=== PATIENT | female | born 1935 | race Caucasian/White ===

== ENCOUNTER 2016-08-31 04:51 | Inpatient (IN) | payer MEDICARE, BC ==
[~2016-08-31] VITALS: Ht 172.7 cm; Wt 60.0 kg
[2016-08-31] VITALS (12 sets, daily range): BP systolic 115–161; BP diastolic 58–97; PULSE 73–87; RESP 14–25; TEMP 97.6–101.6; O2SAT 94–99
[~2016-08-31 04:51] MED LIST: B-12500T3 PO; BONI3INJ IM; CALC500 PO; CIPR500T4 PO; FOLI200T OR; IRON28TA2 PO; LACT PO; LEVO125T3 PO; METH-60 IM; METH4TAB6 PO; METR500I3 PO; MULT-65 PO; VITA400C58 PO
[2016-08-31] MEDS ORDERED: MULT1TAB84 PO (05:00)
[2016-08-31] MEDS ORDERED: ZOLE5P IV (05:00)
[2016-08-31] MEDS ORDERED: ABAT1INJ2 SQ (05:00)
[2016-08-31] MEDS ORDERED: LEVO100T5 PO (05:00)
[2016-08-31] MEDS ORDERED: FERR1TAB58 PO (05:00)
[2016-08-31] MEDS ORDERED: METH4TAB6 PO (05:00)
[2016-08-31] MEDS ORDERED: HYDR200T3 PO (05:00)
--- NOTE | 2016-08-31 05:14 | PD ---
HPI Chief Complaint: GI Complaint Time Seen by Provider: 05:07 Travel History International Travel<30 days: No Contact w/Intl Traveler<30days: No Traveled to known affect area: No History of Present Illness HPI The patient is a 80 year old female who presents to the [facility] emergency department with a history of not feeling well when she tried to go to bed this evening. She reports that she's had tremulousness and then began to have nausea and vomiting 6, diarrhea too many times to count. She reports that the stool is brown in color. She denies having any blood in her stool or mucus in her stool. She denies having any focal abdominal pain, except just before she needs to vomit. She denies being on any recent antibiotic over the last 3 months, any sick contacts, or foreign travel in the last 6 months. She denies having any chest pain or shortness of breath. The patient denies having any dysuria or urinary frequency, however she does report having some urinary urgency. The patient was brought in by ambulance services with a blood sugar reported prior to her arrival to be 124. The patient denies any known fever, cough, congestion, neck pain, or neurologic symptoms. [facility] Past Medical History Narrative Medical The patient's past medical history is significant for rheumatoid arthritis, hypothyroid disorder, history of kidney stones status post lithotripsy in March 2016. Anemia: Yes Arthritis: Yes Asthma: No Autoimmune Disease: No Heart Rhythm Problems: No Cancer: No Cardiovascular Problems: No High Cholesterol: No Chemotherapy: No Chest Pain: No Congestive Heart Failure: No COPD: Yes Cerebrovascular Accident: No Diabetes: No Diminished Hearing: No Endocrine: No GERD: No Genitourinary: No Hiatal Hernia: No Immune Disorder: No Kidney Stones: No Musculoskeletal: Yes Neurologic: No Psychiatric: No Reproductive: No Respiratory: Yes Migraines: No Radiation Therapy: No Renal Failure: No Seizures: No Sickle Cell Disease: No Sleep Apnea: No Thyroid Disease: Yes Ulcer: No Tetanus Vaccination: < 5 Years Influenza Vaccination: Yes Menopausal: Yes Past Surgical History Narrative Surgical The patient's past surgical history is significant for an appendectomy, tonsillectomy, eye surgery, and lithotripsy. Abdominal Surgery: No AICD: No Appendectomy: Yes Arteriovenous Shunt: No Cardiac Surgery: No Ear Surgery: No Endocrine Surgery: No Eye Surgery: No Genitourinary Surgery: No Gynecologic Surgery: No Joint Replacement: No Oral Surgery: No Pacemaker: No Thoracic Surgery: Yes Tonsillectomy: Yes Other Surgery: Yes (LEFT BREAST LUMPECTOMY) Social History Alcohol Use: No Tobacco Use: No Substance Use: No Allergies-Medications (Allergen,Severity, Reaction): Coded Allergies: Vitamin K (Verified Adverse Reaction, Intermediate, UPSET STOMACH, 08/31/16 ) Reported Meds & Prescriptions Reported Meds & Active Scripts Active Reported Reclast Inj (Zoledronic Acid) 5 Mg/100 Ml Inj 5 Mg IV Q365D Orencia Clickjet Inj (Abatacept) 125 Mg/Ml Pen 125 Mg SQ Q7D Hydroxychloroquine (Hydroxychloroquine Sulfate) 200 Mg Tab 200 Mg PO BID Takw with food Methylprednisolone 4 Mg Tab 4 Mg PO DAILY Levothyroxine (Levothyroxine Sodium) 100 Mcg Tab 100 Mcg PO DAILY Iron (Ferrous Sulfate) 50 Mg Tab 65 Mg PO DAILY Multivitamin Adults (Multiple Vitamins W/ Minerals) 1 Tab 1 Tab PO DAILY Review of Systems Except as stated in HPI: all other systems reviewed are Neg General / Constitutional: No: Fever Eyes: No: Visual changes HENT: No: Headaches Cardiovascular: No: Chest Pain or Discomfort Respiratory: No: Shortness of Breath Gastrointestinal: Positive: Nausea, Vomiting, Diarrhea, Abdominal Pain, Changes in Bowel Habits, No: Indigestion, Loss of Appetite Genitourinary: Positive: Urgency, No: Frequency, Dysuria Musculoskeletal: No: Pain Skin: No Rash Neurologic: Positive: Weakness (generalized weakness), No: Focal Abnormalities , Change in Mentation, Slurred Speech, Sensory Disturbance Psychiatric: No: Depression Endocrine: No: Polydipsia Hematologic/Lymphatic: No: Easy Bruising Physical Exam Narrative General: The patient is a well-developed well-nourished female in no acute distress. Head and Neck exam: Head is normocephalic atraumatic. Eyes: EOMI, pupils are equal round and reactive to light. Nose: Midline septum with pink mucous membranes Mouth: Dentition unremarkable. Moist mucus membranes. Posterior oropharynx is not erythematous. No tonsillar hypertrophy. Uvula midline. Airway patent. Neck: No palpable lymphadenopathy. No nuchal rigidity. No thyromegaly. Cardiovascular: Regular rate and rhythm without murmurs, gallops, or rubs. Lungs: Clear to auscultation bilaterally. No wheezes, rhonchi, or rales. The patient' s O2 saturation on room air is 90-91% Abdomen: Soft, without tenderness to palpation in all 4 quadrants of the abdomen. No guarding, rebound, or rigidity. Normal bowel sounds are audible. Extremities: No clubbing, cyanosis, or edema. 2+ pulses in all 4 extremities. Back: No costovertebral angle tenderness to palpation. Neurologic Exam: Cranial nerves 2-12 were intact on exam. Strength is 5/5 in all 4 extremities. No sensory deficits noted. Skin Exam: No rash noted. Intact skin that is warm and dry. Data Data Last Documented VS Vital Signs Date Time Temp Pulse Resp B/P Pulse Ox O2 Delivery O2 Flow Rate FiO2 08/31/16 10:04 98.5 08/31/16 09:00 84 16 127/97 97 Nasal Cannula 2 Orders Electrocardiogram (08/31/16 05:07) Complete Blood Count With Diff (08/31/16 05:07) Comprehensive Metabolic Panel (08/31/16 05:07) Creatine Kinase (Cpk) (08/31/16 05:07) Ckmb (Isoenzyme) Profile (08/31/16 05:07) Troponin I (08/31/16 05:07) B-Type Natriuretic Peptide (08/31/16 05:07) Blood Culture (08/31/16 05:07) C-Reactive Protein (Crp) (08/31/16 05:07) Lipase (08/31/16 05:07) Urinalysis - C+S If Indicated (08/31/16 05:07) Cath For Specimen (08/31/16 05:07) Thyroid Stimulating Hormone (08/31/16 05:07) Chest, Single Ap (08/31/16 05:07) Iv Access Insert/Monitor (08/31/16 05:07) Ecg Monitoring (08/31/16 05:07) Oximetry (08/31/16 05:07) Lactic Acid Sepsis Protocol (08/31/16 05:07) Sodium Chlor 0.9% 1000 Ml Inj (Ns 1000 M (08/31/16 05:15) Ondansetron Inj (Zofran Inj) (08/31/16 05:15) CKMB (08/31/16 05:20) CKMB% (08/31/16 05:20) Ct Abd/Pel W/O Iv Contrast (08/31/16 06:28) Sodium Chlorid 0.9% 500 Ml Inj (Ns 500 M (08/31/16 07:00) Oral Rehydration (08/31/16 06:47) Act Partial Throm Time (Ptt) (08/31/16 07:49) Prothrombin Time / Inr (Pt) (08/31/16 07:49) Blood Culture (08/31/16 07:49) Magnesium (Mg) (08/31/16 07:49) Phosphorus (Po4) (08/31/16 07:49) Lactic Acid (08/31/16 07:49) Sodium Chlor 0.9% 1000 Ml Inj (Ns 1000 M (08/31/16 08:00) Ceftriaxone Inj (Rocephin Inj) (08/31/16 08:00) Metronidazole 500 Mg Inj (Flagyl 500 Mg (08/31/16 08:00) Acetaminophen (Tylenol) (08/31/16 08:00) Ct Abd/Pel W Iv Contrast(Rout) (08/31/16 ) Oral Contrast - Adult (08/31/16 08:08) Diatrizoate Liq ( Gastroview Liq) (08/31/16 08:26) Iohexol 350 Inj (Omnipaque 350 Inj) (08/31/16 09:34) Admit Order (Ed Use Only) (08/31/16 ) Labs Laboratory Tests Test 08/31/16 08/31/16 08/31/16 08/31/16 05:20 05:25 05:30 08:24 White Blood Count 8.4 TH/MM3 Red Blood Count 4.29 MIL/MM3 Hemoglobin 13.0 GM/DL Hematocrit 38.0 % Mean Corpuscular Volume 88.6 FL Mean Corpuscular Hemoglobin 30.4 PG Mean Corpuscular Hemoglobin 34.3 % Concent Red Cell Distribution Width 13.7 % Platelet Count 246 TH/MM3 Mean Platelet Volume 7.8 FL Neutrophils (%) (Auto) 83.7 % Lymphocytes (%) (Auto) 8.8 % Monocytes (%) (Auto) 7.1 % Eosinophils (%) (Auto) 0.1 % Basophils (%) (Auto) 0.3 % Neutrophils # (Auto) 7.0 TH/MM3 Lymphocytes # (Auto) 0.7 TH/MM3 Monocytes # (Auto) 0.6 TH/MM3 Eosinophils # (Auto) 0.0 TH/MM3 Basophils # (Auto) 0.0 TH/MM3 CBC Comment DIFF FINAL Differential Comment Sodium Level 134 MEQ/L Potassium Level 4.3 MEQ/L Chloride Level 102 MEQ/L Carbon Dioxide Level 24.9 MEQ/L Anion Gap 7 MEQ/L Blood Urea Nitrogen 17 MG/DL Creatinine 0.85 MG/DL Estimat Glomerular Filtration 65 ML/MIN Rate Random Glucose 127 MG/DL Calcium Level 8.6 MG/DL Total Bilirubin 0.5 MG/DL Aspartate Amino Transf 76 U/L (AST/SGOT) Alanine Aminotransferase 73 U/L (ALT/SGPT) Alkaline Phosphatase 88 U/L Total Creatine Kinase 116 U/L Creatine Kinase MB 0.6 NG/ML Troponin I LESS THAN 0.02 NG/ML C-Reactive Protein 2.98 MG/DL 2.80 MG/DL B-Type Natriuretic Peptide 56 PG/ML Total Protein 6.8 GM/DL Albumin 2.9 GM/DL Lipase 121 U/L Thyroid Stimulating Hormone 1.600 uIU/ML 3rd Gen Urine Color YELLOW Urine Turbidity CLEAR Urine pH 7.[address] 1.014 Urine Protein NEG mg/dL Urine Glucose (UA) NEG mg/dL Urine Ketones NEG mg/dL Urine Occult Blood NEG Urine Nitrite NEG Urine Bilirubin NEG Urine Urobilinogen LESS THAN 2.0 MG/DL Urine Leukocyte Esterase NEG Urine RBC 11 /hpf Urine WBC 3 /hpf Urine Hyaline Casts 1 /lpf Urine Mucus FEW /lpf Microscopic Urinalysis Comment CULT NOT INDICATED Lactic Acid Level 1.8 mmol/L 0.9 mmol/L Prothrombin Time 11.3 SEC Prothromb Time International 1.0 RATIO Ratio Activated Partial 24.9 SEC Thromboplast Time Phosphorus Level 1.8 MG/DL Magnesium Level 1.7 MG/DL MDM Medical Decision Making Medical Screen Exam Complete: Yes Emergency Medical Condition: Yes Medical Record Reviewed: Yes Interpretation(s) Last Impressions Abdomen/Pelvis CT 08/31/16627 Signed Impressions: Service Date/Time: Wednesday, August 31, 2016 06:40 - CONCLUSION: 1. Florid diverticulosis with chronic diverticular disease but I don't see high grade acute inflammatory changes. This study without intravenous or oral contrast suggests extraluminal fluid and air collections within the pelvic cavity as above. Recommend repeating CT of the abdomen and pelvis with intravenous and oral contrast for further evaluation. 2. There is a elongated stone of the left ureteropelvic junction causing mild obstructive uropathy. 3. Prominent extrarenal pelvis on the right without evidence of acute right-sided obstructive uropathy. Haider England MD Chest X-Ray 08/31/16 0507 Signed Impressions: Service Date/Time: Wednesday, August 31, 2016 05:32 - CONCLUSION: Chronic interstitial lung disease and mild cardiomegaly similar to before. No acute cardiopulmonary disease demonstrated. Haider England MD Abdomen/Pelvis CT 08/31/16 0000 Signed Impressions: Service Date/Time: Wednesday, August 31, 2016 09:27 - CONCLUSION: 2.7 x 2.3 cm soft tissue collection directly superior to the sigmoid colon I suspect is a decompressed diverticular abscess. There is no drainable fluid on today's examination but it is new since the August 2015 examination. Underlying inflammation around the sigmoid colon suggests ongoing diverticulitis. Please see above. Cristian Leach MD Differential Diagnosis Sepsis, versus urinary tract infection, versus pneumonia, versus viral versus bacterial gastroenteritis, versus acute coronary syndrome Narrative Course During the course of the patients emergency department visit, the patients history, examination, and differential diagnosis were reviewed with the patient. The patient had IV access obtained and blood work sent for analysis. The patient was placed on a classroom monitor with oximetry and blood pressure monitoring. The patient was started on 2 L nasal cannula O2. The patient was provided normal saline 1 L IV fluid bolus, Zofran 4 mg IV for nausea. The patients laboratory studies were reviewed and remarkable for a CBC with a normal white count, however neutrophil predominance, CMP is unremarkable. Cardiac enzymes are within normal limits. Urinalysis showed evidence of microscopic hematuria. CT scan of the abdomen and pelvis without contrast has been ordered to evaluate further for possible stone versus mass. CT scan was pending result at the conclusion of my shift. The patient's case was checked out to the oncoming emergency physician to disposition based on the conclusion of her workup. Prior to my shift ending I did discuss this further with the patient and the patient's . The patient will attempt oral rehydration as she reports feeling improved after Zofran administration and IV fluids. Diagnosis Primary Impression: Nausea vomiting and diarrhea Max,Reny D. MD Aug 31, 2016 05:14
[2016-08-31] MEDS ORDERED: ONDANSETRON HCL 4 MG/2 ML VIAL IV ONE (05:15)
[2016-08-31] MEDS ORDERED: SODIUM CHLOR 0.9% 1000 ML INJ 1,000 ML IV ONE ×2 (05:15→08:00)
[2016-08-31 05:37] LABS: BASOPHIL % 0.3 % (0.0-2.0); EOSINOPHIL % 0.1 % (0.0-4.0); HEMO FLAGS DIFF FINAL; LYMPH % 8.8 % (9.0-44.0); LYMPHOCYTE # 0.7 TH/MM3 (1.0-4.8); MEAN CELL VOLUME 88.6 FL (80.0-100.0); MEAN CORPUSCULAR HEMOGLOBIN 30.4 PG (27.0-34.0); MEAN CORPUSCULAR HGB CONC 34.3 % (32.0-36.0); MONO % 7.1 % (0.0-8.0); NEUT % 83.7 % (16.0-70.0); PLATELET COUNT 246 TH/MM3 (150-450); RED BLOOD COUNT 4.29 MIL/MM3 (4.00-5.30); RED CELL DISTRIBUTION WIDTH 13.7 % (11.6-17.2); WHITE BLOOD COUNT 8.4 TH/MM3 (4.0-11.0)
[2016-08-31 05:38] LABS: BLOOD, URINE NEG (NEG); GLUCOSE,URINE NEG (NEG); HYALINE CAST, URINE 1 /lpf (RARE); KETONE, URINE NEG (NEG); MUCUS URINE FEW /lpf (OCC); NITRITE,URINE NEG (NEG); URINE COLOR YELLOW (YELLW/STRAW)
[2016-08-31 05:39] LABS: COMMENT (UR) CULT NOT INDICATED; CULTURE IF INDICATED CULT NOT INDICATED
--- NOTE | 2016-08-31 06:00 | RADRPT ---
EXAM DATE/TIME: 08/31/2016 05:32 [facility] COMPARISON: No previous studies available for comparison. INDICATIONS : Cough. MEDICAL HISTORY : Chronic obstructive pulmonary disease. Emphysema. Osteoarthritis. Thyroid disease, Anemia SURGICAL HISTORY : Tonsillectomy. Appendectomy. Left breast lumpectomy ENCOUNTER: Initial ACUITY: 1 day PAIN SCORE: 0/10 LOCATION: Bilateral chest FINDINGS: Chronic interstitial opacities laterally in the right mid lung and laterally of both bases again note d. No acute infiltrates seen. No pleural effusion or pneumothorax. Mild cardiomegaly is stable. CONCLUSION: Chronic interstitial lung disease and mild cardiomegaly similar to before. No acute cardiopulmonary d isease demonstrated. Haider England MD on August 31, 2016 at 5:57 Board Certified Radiologist. This report was verified electronically.
[2016-08-31 06:08] LABS: ALT (GPT) 73 U/L (10-53); ANION GAP 7 MEQ/L (5-15); AST (GOT) 76 U/L (15-37); BICARBONATE 24.9 MEQ/L (21.0-32.0); BLOOD UREA NITROGEN 17 MG/DL (7-18); CHLORIDE 102 MEQ/L (98-107); GLOMERULAR FILTRATION RATE 65 ML/MIN (>89); POTASSIUM 4.3 MEQ/L (3.5-5.1); SODIUM (NA) 134 MEQ/L (136-145)
[2016-08-31 06:22] LABS: ALKALINE PHOSPHATASE 88 U/L (45-117); CREATINE KINASE 116 U/L (26-192); TOTAL BILIRUBIN ADULT 0.5 MG/DL (0.2-1.0)
[2016-08-31 06:36] LABS: CKMB 0.6 NG/ML (0.5-3.6)
[2016-08-31] MEDS ORDERED: SODIUM CHLORID 0.9% 500 ML INJ 500 ML IV ONE (07:00)
--- NOTE | 2016-08-31 07:05 | RADRPT ---
EXAM DATE/TIME: 08/31/2016 06:40 [facility] COMPARISON: No previous studies available for comparison. INDICATIONS : Nausea, vomiting, diarrhea, and hematuria. ORAL CONTRAST: No oral contrast ingested. RADIATION DOSE: 9.78 CTDIvol (mGy) MEDICAL HISTORY : Chronic obstructive pulmonary disease. Emphysema. IBS, thyroid disease SURGICAL HISTORY : Appendectomy. left lumpectomy ENCOUNTER: Initial ACUITY: 1 day PAIN SCALE: 10/10 LOCATION: abdomen TECHNIQUE: Volumetric scanning of the abdomen and pelvis was performed. Using automated exposure control and ad justment of the mA and/or kV according to patient size, radiation dose was kept as low as reasonably achievable to obtain optimal diagnostic quality images. FINDINGS: Study was done without intravenous or oral contrast. There is florid diverticulosis and chronic diver ticular disease of the sigmoid colon. I believe there are extraluminal fluid and air collections, one in the central pelvic cavity measuring 3 cm in size, series 2 image 97 and the other in the right ce ntral anterior pelvic cavity measuring about 5.5 cm, series 2 image 106. Loss of fat planes between t he sigmoid colon and uterus but I don't see direct involvement of the urinary bladder. Urinary bladde r is decompressed with a Miles catheter. 3 x 6.5 x 6.5 mm calculus seen at the left ureteropelvic junction causing mild hydronephrosis. There is also mild right hydronephrosis which I believe is chronic loss of compliance of the collecting sys tems rather than acute obstruction. I don't see a stone on the right. The right and left ureters are normal. Noncontrast appearance of the spleen, pancreas, adrenal glands and visualized liver are within normal limits. At least trace atelectasis seen of the visualized lung bases. No acute bony abnormality demo nstrated. CONCLUSION: 1. Florid diverticulosis with chronic diverticular disease but I don't see high grade acute inflammat ory changes. This study without intravenous or oral contrast suggests extraluminal fluid and air gabrielle ections within the pelvic cavity as above. Recommend repeating CT of the abdomen and pelvis with intr avenous and oral contrast for further evaluation. 2. There is a elongated stone of the left ureteropelvic junction causing mild obstructive uropathy. 3. Prominent extrarenal pelvis on the right without evidence of acute right-sided obstructive uropath y. Haider England MD on August 31, 2016 at 6:53 Board Certified Radiologist. This report was verified electronically.
--- NOTE | 2016-08-31 07:56 | PD ---
Data Data Last Documented VS Vital Signs Date Time Temp Pulse Resp B/P Pulse Ox O2 Delivery O2 Flow Rate FiO2 08/31/16 10:04 98.5 08/31/16 09:00 84 16 127/97 97 Nasal Cannula 2 Orders Electrocardiogram (08/31/16 05:07) Complete Blood Count With Diff (08/31/16 05:07) Comprehensive Metabolic Panel (08/31/16 05:07) Creatine Kinase (Cpk) (08/31/16 05:07) Ckmb (Isoenzyme) Profile (08/31/16 05:07) Troponin I (08/31/16 05:07) B-Type Natriuretic Peptide (08/31/16 05:07) Blood Culture (08/31/16 05:07) C-Reactive Protein (Crp) (08/31/16 05:07) Lipase (08/31/16 05:07) Urinalysis - C+S If Indicated (08/31/16 05:07) Cath For Specimen (08/31/16 05:07) Thyroid Stimulating Hormone (08/31/16 05:07) Chest, Single Ap (08/31/16 05:07) Iv Access Insert/Monitor (08/31/16 05:07) Ecg Monitoring (08/31/16 05:07) Oximetry (08/31/16 05:07) Lactic Acid Sepsis Protocol (08/31/16 05:07) Sodium Chlor 0.9% 1000 Ml Inj (Ns 1000 M (08/31/16 05:15) Ondansetron Inj (Zofran Inj) (08/31/16 05:15) CKMB (08/31/16 05:20) CKMB% (08/31/16 05:20) Ct Abd/Pel W/O Iv Contrast (08/31/16 06:28) Sodium Chlorid 0.9% 500 Ml Inj (Ns 500 M (08/31/16 07:00) Oral Rehydration (08/31/16 06:47) Act Partial Throm Time (Ptt) (08/31/16 07:49) Prothrombin Time / Inr (Pt) (08/31/16 07:49) Blood Culture (08/31/16 07:49) Magnesium (Mg) (08/31/16 07:49) Phosphorus (Po4) (08/31/16 07:49) Lactic Acid (08/31/16 07:49) Sodium Chlor 0.9% 1000 Ml Inj (Ns 1000 M (08/31/16 08:00) Ceftriaxone Inj (Rocephin Inj) (08/31/16 08:00) Metronidazole 500 Mg Inj (Flagyl 500 Mg (08/31/16 08:00) Acetaminophen (Tylenol) (08/31/16 08:00) Ct Abd/Pel W Iv Contrast(Rout) (08/31/16 ) Oral Contrast - Adult (08/31/16 08:08) Diatrizoate Liq ( Gastrodejah Liq) (08/31/16 08:26) Iohexol 350 Inj (Omnipaque 350 Inj) (08/31/16 09:34) Admit Order (Ed Use Only) (08/31/16 ) Labs Laboratory Tests Test 08/31/16 08/31/16 08/31/16 08/31/16 05:20 05:25 05:30 08:24 White Blood Count 8.4 TH/MM3 Red Blood Count 4.29 MIL/MM3 Hemoglobin 13.0 GM/DL Hematocrit 38.0 % Mean Corpuscular Volume 88.6 FL Mean Corpuscular Hemoglobin 30.4 PG Mean Corpuscular Hemoglobin 34.3 % Concent Red Cell Distribution Width 13.7 % Platelet Count 246 TH/MM3 Mean Platelet Volume 7.8 FL Neutrophils (%) (Auto) 83.7 % Lymphocytes (%) (Auto) 8.8 % Monocytes (%) (Auto) 7.1 % Eosinophils (%) (Auto) 0.1 % Basophils (%) (Auto) 0.3 % Neutrophils # (Auto) 7.0 TH/MM3 Lymphocytes # (Auto) 0.7 TH/MM3 Monocytes # (Auto) 0.6 TH/MM3 Eosinophils # (Auto) 0.0 TH/MM3 Basophils # (Auto) 0.0 TH/MM3 CBC Comment DIFF FINAL Differential Comment Sodium Level 134 MEQ/L Potassium Level 4.3 MEQ/L Chloride Level 102 MEQ/L Carbon Dioxide Level 24.9 MEQ/L Anion Gap 7 MEQ/L Blood Urea Nitrogen 17 MG/DL Creatinine 0.85 MG/DL Estimat Glomerular Filtration 65 ML/MIN Rate Random Glucose 127 MG/DL Calcium Level 8.6 MG/DL Total Bilirubin 0.5 MG/DL Aspartate Amino Transf 76 U/L (AST/SGOT) Alanine Aminotransferase 73 U/L (ALT/SGPT) Alkaline Phosphatase 88 U/L Total Creatine Kinase 116 U/L Creatine Kinase MB 0.6 NG/ML Troponin I LESS THAN 0.02 NG/ML C-Reactive Protein 2.98 MG/DL 2.80 MG/DL B-Type Natriuretic Peptide 56 PG/ML Total Protein 6.8 GM/DL Albumin 2.9 GM/DL Lipase 121 U/L Thyroid Stimulating Hormone 1.600 uIU/ML 3rd Gen Urine Color YELLOW Urine Turbidity CLEAR Urine pH 7.0 Urine Specific [place] 1.014 Urine Protein NEG mg/dL Urine Glucose (UA) NEG mg/dL Urine Ketones NEG mg/dL Urine Occult Blood NEG Urine Nitrite NEG Urine Bilirubin NEG Urine Urobilinogen LESS THAN 2.0 MG/DL Urine Leukocyte Esterase NEG Urine RBC 11 /hpf Urine WBC 3 /hpf Urine Hyaline Casts 1 /lpf Urine Mucus FEW /lpf Microscopic Urinalysis Comment CULT NOT INDICATED Lactic Acid Level 1.8 mmol/L 0.9 mmol/L Prothrombin Time 11.3 SEC Prothromb Time International 1.0 RATIO Ratio Activated Partial 24.9 SEC Thromboplast Time Phosphorus Level 1.8 MG/DL Magnesium Level 1.7 MG/DL [facility] Supervised Visit with AQUILES: No Narrative Course Patient care assumed from Dr. Reny Santana at 0700, patient is a 80-year-old female who had sudden onset of diarrhea last night and weakness. Patient CAT scan is pending labs are fairly reassuring except for minimal elevation in AST and aLT bilirubin is normal. Patient CAT scan results are reviewed and concerning for possible diverticular abscesses versus diverticular rupture. Patient on initial exam by me has a very soft abdomen which is benign. She does appear somewhat rundown but nontoxic. She is alert and awake albeit somnolent. No rebound no percussive tenderness. She is warm to the touch and on rechecking vital signs she has temperature of 102.5. Radiologist recommended repeat CAT scan with by mouth and IV contrast to further characterize her abdomen. So ordered. Have also ordered Rocephin and Flagyl blood cultures. Her initial lactic acid was 1.8 will recheck. An additional liter bolus of fluid was added will bring her total 2.5 L in the emergency department. Patient repeat CAT scan with IV and by mouth contrast does show diverticular abscess and diverticulitis of the descending colon. Dr. Wil Wang was consult did and for now would recommend medical management. Patient was discussed with Dr. Corey Haskins who will admit. Patient was given Rocephin and Flagyl in the emergency department. She remains hemodynamically stable and is more alert as the day goes on and she wakes up some more. Diagnosis Primary Impression: Colonic diverticular abscess Admitting Information Admitting Physician Requests: Admit Condition: Stable Manuel Leon MD Aug 31, 2016 07:55
[2016-08-31] MEDS ORDERED: cefTRIAXone INJ 1,000 MG in SODIUM CHLORIDE 0.9% INJ 25 ML IV ONE (08:00)
[2016-08-31] MEDS ORDERED: ACETAMINOPHEN 325 MG TAB PO ONE (08:00)
[2016-08-31] MEDS ORDERED: metroNIDAZOLE 500 MG INJ 100 ML IV ONE (08:00)
[2016-08-31] MEDS ORDERED: DIATRIZOATE MEGLUM/DIATRIZOATE SOD 9 ML CUP ONE (08:26)
[2016-08-31 08:57] LABS: MAGNESIUM 1.7 MG/DL (1.5-2.5)
[2016-08-31 09:02] LABS: APTT (PATIENT) 24.9 SEC (24.3-30.1); PROTHROMBIN TIME - PATIENT 11.3 SEC (9.8-11.6)
[2016-08-31] MEDS ORDERED: IOHEXOL 350 MG/ML 10 ML VIAL (for RAD DIAG) IV ONE (09:34)
--- NOTE | 2016-08-31 10:32 | RADRPT ---
EXAM DATE/TIME: 08/31/2016 09:27 [facility] COMPARISON: Prior study August 2015. INDICATIONS : Abdominal pain. Nausea, vomiting, and diarrhea IV CONTRAST: 81 cc Omnipaque 350 (iohexol) IV ORAL CONTRAST: Partial prescribed oral contrast ingested. RADIATION DOSE: 9.96 CTDIvol (mGy) MEDICAL HISTORY : Chronic obstructive pulmonary disease. Emphysema. SURGICAL HISTORY : Appendectomy. ENCOUNTER: Initial ACUITY: 1 day PAIN SCALE: 0/10 LOCATION: upper quadrant TECHNIQUE: Volumetric scanning of the abdomen and pelvis was performed. Using automated exposure control and adjustment of the mA and/or kV according to patient size, radiation dose was kept as low as reasonably achievable to obtain optimal diagnostic quality images. FINDINGS: CT scan abdomen and pelvis demonstrates there is a small 2.7 x 2.3 cm soft tissue collection directly superior to the sigmoid colon. I suspect it is a diverticula abscess although there is really no dr ainable fluid on today's examination. The contrast-enhanced liver, spleen, adrenal glands and pancre as are unremarkable. The kidneys are unremarkable. The large renal calculus stone seen previously i s no longer identified. There is some mild inflammatory stranding around the sigmoid colon. CONCLUSION: 2.7 x 2.3 cm soft tissue collection directly superior to the sigmoid colon I suspect is a decompresse d diverticular abscess. There is no drainable fluid on today's examination but it is new since the J anuary 2016 examination. Underlying inflammation around the sigmoid colon suggests ongoing diverticu litis. Please see above. Cristian Leach MD on August 31, 2016 at 9:45 Board Certified Radiologist. This report was verified electronically.
[2016-08-31] MEDS ORDERED: ONDANSETRON HCL 4 MG/2 ML VIAL IVP PRN (11:15)
[2016-08-31] MEDS ORDERED: SODIUM CHLORIDE 0.9% FLUSH 5 ML FLUSH FLUSH PRN (11:15)
[2016-08-31] MEDS ORDERED: PROCHLORPERAZINE 25 MG SUPP PR PRN (11:15)
[2016-08-31] MEDS ORDERED: BISACODYL 10 MG SUPP PR PRN (11:15)
[2016-08-31] MEDS ORDERED: SENNOSIDES 8.6 MG TAB PO PRN (11:15)
[2016-08-31] MEDS ORDERED: POTASSIUM PHOSPHATE MONOBASIC 500 MG TAB PO ONE (11:15)
[2016-08-31] MEDS ORDERED: ABATACEPT 125 MG SQ SCH (11:30)
[2016-08-31] MEDS: ENOXAPARIN SODIUM 40 MG/0.4 ML SYRINGE SQ SCH (12:02)
[2016-08-31] MEDS: SODIUM CHLOR 0.9% 1000 ML INJ 1,000 ML IV SCH ×2 (12:08→21:03)
[2016-08-31] MEDS: CIPROFLOXACIN 400 MG PREMIX 200 ML IV SCH ×2 (13:14→21:00)
--- NOTE | 2016-08-31 13:29 | HHI.HP ---
[facility] Primary Care Physician Anil Cevallos MD Admission Diagnosis Hypothyroidism, Altered mental status. Diagnoses: Chief Complaint: Chills, vomiting, diarrhea Travel History International Travel<30 Days: No Contact w/Intl Traveler <30 Da: No Traveled to Known Affected Are: No History of Present Illness 80-year-old female with a past medical history of RA, hypothyroidism, COPD, lung mass, diverticulitis who presented with chills, vomiting, and diarrhea. The patient states that last night she began shaking uncontrollably. She began having nausea and vomiting, cannot quantify episodes. Also had an episode probably one episode of diarrhea, nonbloody. She was having generalized weakness and was unable to get up, so her spouse called the paramedics. They state they checked her temperature and at one point it was over 102. She denies any abdominal pain. She was admitted last year and had an episode of diverticulitis during admission. She was prescribed Cipro and Flagyl at the time, but only took about 5 days' worth, because she felt like the antibiotics made her feel worse and was afraid the Cipro would cause C. difficile. She denies any chest pain, shortness breath, cough. She states that she had a colonoscopy done about a year ago with her movie operator, Dr. Vazquez, and was told she would need another colonoscopy for 10 years. 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 Diverticulitis Past Surgical History Cataract surgery Right breast lumpectomy Colonoscopy Tonsillectomy Appendectomy Reported Medications Reclast Inj (Zoledronic Acid) 5 Mg/100 Ml Inj 5 Mg IV Q365D Orencia Clickjet Inj (Abatacept) 125 Mg/Ml Pen 125 Mg SQ Q7D Hydroxychloroquine (Hydroxychloroquine Sulfate) 200 Mg Tab 200 Mg PO BID Takw with food Methylprednisolone 4 Mg Tab 4 Mg PO DAILY Levothyroxine (Levothyroxine Sodium) 100 Mcg Tab 100 Mcg PO DAILY Iron (Ferrous Sulfate) 50 Mg Tab 65 Mg PO DAILY Multivitamin Adults (Multiple Vitamins W/ Minerals) 1 Tab 1 Tab PO DAILY Allergies: Coded Allergies: Vitamin K (Verified Adverse Reaction, Intermediate, UPSET STOMACH, 08/31/16 ) Active Ordered Medications Current Medications Medications (Trade) Dose Ordered Sig/Susu Route Start Time Stop Time Status Last Admin (NS 1000 ml Inj) 1,000 ml @ 100 mls/hr Q10H IV 08/31/16 11:03 08/31/16 12:08 (NS Flush) 2 ml UNSCH PRN FLUSH 08/31/16 11:15 (NS Flush) 2 ml BID FLUSH 08/31/16 21:00 (Tylenol) 650 mg Q4H PRN PO 08/31/16 11:15 (Zofran Inj) 4 mg Q6H PRN IVP 08/31/16 11:15 (Compazine Supp) 25 mg Q12H PRN MI 08/31/16 11:15 (Dulcolax Supp) 10 mg DAILY PRN MI 08/31/16 11:15 (Senokot) 17.2 mg Q12H PRN PO 08/31/16 11:15 Enoxaparin Sodium 40 mg 40 mg Q24H SQ 08/31/16 12:00 08/31/16 12:02 Metronidazole 100 ml @ 100 mls/hr Q8H IV 08/31/16 16:00 (Cipro 400 Mg Premix) 200 ml @ 200 mls/hr Q8H IV 08/31/16 12:00 08/31/16 13:14 (Plaquenil) 200 mg BID PO 08/31/16 21:00 (Synthroid) 100 mcg DAILY@06 PO 09/01/16 06:00 (Medrol) 4 mg DAILY PO 09/01/16 09:00 (Theragran M Tab) 1 tab DAILY PO 09/01/16 09:00 Patient Own Medication 125 ea Q7D SQ 08/31/16 11:30 Hold (Ferrous Sulfate) 325 mg DAILY PO 09/01/16 09:00 Family History Mother had a PE Sr. had diabetes Social History Former tobacco use, quit 16 years ago, smoked half pack per day since age 19 No alcohol use Lives at home with her . Physical Exam Vital Signs Vital Signs Date Time Temp Pulse Resp B/P Pulse Ox O2 Delivery O2 Flow Rate FiO2 08/31/16 12:10 98.6 74 16 115/58 Nasal Cannula 2 96 08/31/16 10:04 98.5 08/31/16 09:00 84 16 127/97 97 Nasal Cannula 2 08/31/16 07:00 87 15 142/63 97 Nasal Cannula 2 08/31/16 05:52 16 95 Nasal Cannula 2 08/31/16 04:56 16 08/31/16 04:54 98.9 86 16 161/69 94 Physical Exam GENERAL: Well-developed well-nourished. In no acute distress. SKIN: Warm and dry. No lesions noted. HEENT: Normocephalic. Pupils equal and round. Mucous membranes pink and moist. CARDIOVASCULAR: Regular rate and rhythm. No murmur appreciated. RESPIRATORY: No accessory muscle use. Clear to auscultation. Breath sounds equal bilaterally. GASTROINTESTINAL: Abdomen soft, non-tender, nondistended. Bowel sounds x4. MUSCULOSKELETAL: No obvious deformities. No clubbing or cyanosis. No edema. NEUROLOGICAL: Awake and alert. No focal neurological deficits. Moves upper and lower extremities spontaneously. Normal speech. PSYCHIATRIC: Appropriate mood and affect; insight and judgment normal. Laboratory Laboratory Tests Test 08/31/16 08/31/16 08/31/16 08/31/16 05:20 05:25 05:30 08:24 White Blood Count 8.4 Red Blood Count 4.29 Hemoglobin 13.0 Hematocrit 38.0 Mean Corpuscular Volume 88.6 Mean Corpuscular Hemoglobin 30.4 Mean Corpuscular Hemoglobin 34.3 Concent Red Cell Distribution Width 13.7 Platelet Count 246 Mean Platelet Volume 7.8 Neutrophils (%) (Auto) 83.7 Lymphocytes (%) (Auto) 8.8 Monocytes (%) (Auto) 7.1 Eosinophils (%) (Auto) 0.1 Basophils (%) (Auto) 0.3 Neutrophils # (Auto) 7.0 Lymphocytes # (Auto) 0.7 Monocytes # (Auto) 0.6 Eosinophils # (Auto) 0.0 Basophils # (Auto) 0.0 CBC Comment DIFF FINAL Differential Comment Sodium Level 134 Potassium Level 4.3 Chloride Level 102 Carbon Dioxide Level 24.9 Anion Gap 7 Blood Urea Nitrogen 17 Creatinine 0.85 Estimat Glomerular Filtration 65 Rate Random Glucose 127 Calcium Level 8.6 Total Bilirubin 0.5 Aspartate Amino Transf 76 (AST/SGOT) Alanine Aminotransferase 73 (ALT/SGPT) Alkaline Phosphatase 88 Total Creatine Kinase 116 Creatine Kinase MB 0.6 Troponin I LESS THAN 0.02 C-Reactive Protein 2.98 2.80 B-Type Natriuretic Peptide 56 Total Protein 6.8 Albumin 2.9 Lipase 121 Thyroid Stimulating Hormone 1.600 3rd Gen Urine Color YELLOW Urine Turbidity CLEAR Urine pH 7.0 Urine Specific [place] 1.014 Urine Protein NEG Urine Glucose (UA) NEG Urine Ketones NEG Urine Occult Blood NEG Urine Nitrite NEG Urine Bilirubin NEG Urine Urobilinogen LESS THAN 2.0 Urine Leukocyte Esterase NEG Urine RBC 11 Urine WBC 3 Urine Hyaline Casts 1 Urine Mucus FEW Microscopic Urinalysis Comment CULT NOT INDICATED Lactic Acid Level 1.8 0.9 Prothrombin Time 11.3 Prothromb Time International 1.0 Ratio Activated Partial 24.9 Thromboplast Time Phosphorus Level 1.8 Magnesium Level 1.7 Date/Time Procedure Status Source Growth 08/31/16 08:27 Aerobic Blood Culture Received Blood Peripheral Pending 08/31/16 08:27 Anaerobic Blood Culture Received Blood Peripheral Pending Result Diagram: 08/31/16 0520 08/31/16 0520 Imaging Last Impressions Abdomen/Pelvis CT 08/31/16 0628 Signed Impressions: Service Date/Time: Wednesday, August 31, 2016 06:40 - CONCLUSION: 1. Florid diverticulosis with chronic diverticular disease but I don't see high grade acute inflammatory changes. This study without intravenous or oral contrast suggests extraluminal fluid and air collections within the pelvic cavity as above. Recommend repeating CT of the abdomen and pelvis with intravenous and oral contrast for further evaluation. 2. There is a elongated stone of the left ureteropelvic junction causing mild obstructive uropathy. 3. Prominent extrarenal pelvis on the right without evidence of acute right-sided obstructive uropathy. Haider England MD Chest X-Ray 08/31/16 1936 Signed Impressions: Service Date/Time: Wednesday, August 31, 2016 05:32 - CONCLUSION: Chronic interstitial lung disease and mild cardiomegaly similar to before. No acute cardiopulmonary disease demonstrated. Haider England MD Assessment and Plan Problem List: (1) Colonic diverticular abscess ICD Code: K57.20 Status: Acute Assessment and Plan 80-year-old female with a past medical history of RA, hypothyroidism, COPD, lung mass, diverticulitis who presented with chills, vomiting, and diarrhea and was found to have diverticular abscess Diverticular abscess: CT abdomen and pelvis showed 2.7 x 2.3 cm soft tissue collection directly superior to the sigmoid colon, with suspected decompressed diverticular abscess. Subjective fevers, afebrile here. No leukocytosis. Lactic acid within normal limits. Blood cultures pending. General surgery was consulted, recommended conservative management. Continue IV Flagyl and Cipro. Consult gastroenterology and infectious disease, appreciate specialist input. Clear liquids, diet per GI. IVF. Lactinex. COPD: History of interstitial lung disease and pulmonary nodules. Follows with Dr. Bruce as outpatient who is monitoring the lung findings. Not on O2 at home. O2 and nebs as needed. Hypothyroidism: Chronic, stable. Continue levothyroxine. Rheumatoid arthritis: Continue methylprednisolone, hydroxychloroquine, Abatacept. Generalized weakness: Secondary to the above. PT/OT consult. DVT prophylaxis: Lovenox Written by Keo Parra, acting as scribe for Dr. Crook on 08/31/16 at 13:29. The documentation accurately reflects the work performed [id number] by me Dr. Crook on 08/31/16 at 13:29. Discussed Condition With Patient with at bedside Keo Parra Aug 31, 2016 13:29 Melany Crook MD Aug 31, 2016 14:14
--- NOTE | 2016-08-31 13:34 | EKG ---
Date Performed: 08/31/2016 Time Performed: 05:18:43 PTAGE: 80 years EKG: Sinus rhythm BORDERLINE LEFT AXIS DEVIATION RIGHT BUNDLE BRANCH BLOCK ABNORMAL ECG NO PREVIOUS TRACING DOCTOR: Kristine Headley Interpretating Date/Time 08/31/2016 13:30:36
[2016-08-31] MEDS ORDERED: RESP: ALBUTEROL 1.25 MG/3 ML NEB (PRN) NEB (14:00)
--- NOTE | 2016-08-31 15:01 | PD.PN.STU ---
Subjective Remarks Patient is a 80 yo female presenting to the ER last night with uncontrolled shaking, weakness, nausea, vomiting, and diarrhea. The patient reported she went to the bathroom last and had diarrhea with no blood. She felt weak and her helped her to the ground. She was shaking uncontrollably and then the ambulance was called. The patient reports no more diarrhea, no more vomiting, and no abdominal pain. She has a PMH of RA, hypothyroidism, COPD, lung mass, and diverticulosis. Objective Vitals Imaging: CT reveals diverticular abscess. 2.7 * 2.3 cm soft tisue mass superior to the sigmoid. No leukocytosis, blood cultures pending. On IV flagyl & cipro General: Oriented to time and place. Strong historian. Appears to be shaking mildly still CVD: no rubs murmurs or gallops PUL: Clear to auscultation bilaterally ABD: Normal bowel sounds, no pain illicit on palpation Vital Signs Date Time Temp Pulse Resp B/P Pulse Ox O2 Delivery O2 Flow Rate FiO2 08/31/16 12:10 98.6 74 16 115/58 Nasal Cannula 2 96 08/31/16 10:04 98.5 08/31/16 09:00 84 16 127/97 97 Nasal Cannula 2 08/31/16 07:00 87 15 142/63 97 Nasal Cannula 2 08/31/16 05:52 16 95 Nasal Cannula 2 08/31/16 04:56 16 08/31/16 04:54 98.9 86 16 161/69 94 I/O 08/30/16 08/30/16 08/30/16 08/31/16 08/31/16 08/31/16 07:00 15:00 23:00 07:00 15:00 23:00 Output Total 1500 ml Balance -1500 ml Output Urine Total 1500 ml # Voids 0 Result Diagram: 08/31/16 0520 08/31/16 0520 A/P Assessment and Plan Diverticular abscess, sepsis Discharge Planning Continue IV ABX and possible regiment change when blood cultures return Felipe Rizo Aug 31, 2016 15:01
[2016-08-31] MEDS: ACETAMINOPHEN 325 MG TAB PO PRN (16:21)
[2016-08-31] MEDS: metroNIDAZOLE 500 MG INJ 100 ML IV SCH (16:24)
--- NOTE | 2016-08-31 18:12 | MB ---
cc: YUE HESS MD DATE OF CONSULTATION 08/31/2016 REASON FOR CONSULTATION Diverticular abscess. HISTORY OF PRESENT ILLNESS The patient is 80-year-old female who presents with a history of rheumatoid arthritis, several medical issues, history of a diverticulitis in the past. The patient presented complaining of shaking and chills and fevers started last night. The patient states she noticed this and felt very weak. She also notes some bouts of diarrhea as well. She denies any abdominal pain and states her and her were concerned and therefore decision was made to call EMS for evaluation with transport to [facility] for further evaluation. She had workup including CT scan showing a small diverticular abscess. Therefore surgery was consulted for further evaluation. On my exam the patient is resting comfortably. She states she has essentially no abdominal pain but does complain of some weakness and diarrhea. She also states she had this in the past for which she was treated with antibiotics and improved medically without any intervention otherwise. She has not had any issues since. She has had regular colonoscopies with confirmatory findings. She presents again with the above complaints including significant weakness. She denies any associated nausea, vomiting. She states does have several medical issues, but it is living and functioning pretty well. PAST MEDICAL HISTORY 1. Rheumatoid arthritis. 2. Hypothyroidism. 3. COPD. 4. Pulmonary nodule. 5. Diverticulitis. PAST SURGICAL HISTORY 1. Cataract surgery. 2. Right breast lumpectomy. 3. Colonoscopy. 4. Tonsillectomy. 5. Appendectomy. MEDICATIONS See EMR. ALLERGIES VITAMIN K. SOCIAL HISTORY The patient denies smoking. Occasional ethyl alcohol. Denies IVDA. FAMILY HISTORY Sister with diabetes. Denies any other medical issues in the family. REVIEW OF SYSTEMS GENERAL: The patient does complain of fevers and chills. HEENT: Denies eye pain, ear pain. NECK: Denies pain. CARDIOVASCULAR: Denies palpitations or chest pain. RESPIRATORY: Denies cough or wheeze. ABDOMEN: Denies abdominal pain or nausea. Complains of diarrhea. MUSCULOSKELETAL: Denies edema or arthrosis. NEUROLOGICAL: Denies numbness or tingling. PSYCHIATRIC: Denies change in mood or affect. GENITOURINARY: Denies dysuria, hematuria. ENDOCRINE: Complaint of hypothyroidism. Denies polyuria. PHYSICAL EXAMINATION GENERAL: The patient in no acute distress. VITAL SIGNS: Temperature 99.4, pulse 75, respiration 25, blood pressure 115/58, 98% saturation 2 liters nasal cannula. HEENT: PERRLA, EOMI. Pupils equal, reactive. NECK: Supple, nontender. HEART: S1-S2, regular rhythm. LUNGS: Clear to auscultation bilaterally. ABDOMEN: Soft, nontender and nondistended. Well-healed incisional paramedian appendectomy scar. EXTREMITIES: No edema. dry skin, bruising, Full range of motion. SKIN: No lesions or masses. LABORATORY WBC 8.4, hemoglobin 13.0, hematocrit 38.0, platelets 246. Sodium of 134, potassium 4.3, chloride 102, CO2 24.9, BUN 17, creatinine 0.8, glucose 147, calcium 8.6, AST 76, ALT 87, T bilirubin 0.5. Lipase 121. TSH 1.6. INR 1.0. IMAGING CT scan reviewed by myself diverticulitis, chronic diverticular disease, 2.7 x 2.3 cm soft tissue fluid collection superior to sigmoid new since previous CT scan. ASSESSMENT The patient 80-year-old female presents with recurrent diverticulitis with diverticular abscess. PLAN After full radiologic, clinical and laboratory assessment the patient with above-named complaints including small perforation abscess of diverticular disease. The patient appears stable without abdominal tenderness. She did have fevers at home and is afebrile here with a normal white count. At this point I think it is prudent for serial abdominal examinations, place the patient on antibiotics, continued observation. The patient can have initial n.p.o. and then start clear liquids. We will continue to follow the patient closely. The patient may warrant another CT scan to evaluate for resolution of abscess. Currently we will continue nonoperative management. The patient does have a very deep posterior abscess that does not appear to be amenable by IR drainage. Again we will continue to attempt nonoperative management. This was discussed with the patient in detail. The patient states understanding and agrees and we will proceed. MD JAQUAN Jha/YANI /5:14 PM /5:42 PM [facility]
[2016-08-31] MEDS: SODIUM CHLORIDE 0.9% FLUSH 5 ML FLUSH FLUSH SCH (21:00)
[2016-08-31] MEDS: LACTOBACILLUS ACIDOPHILUS TAB PO SCH (21:00)
--- NOTE | 2016-08-31 21:08 | PD.CONS ---
HPI History of Present Illness This is a 80 year old female who presents to the emergency room with complaints of nausea vomiting diarrhea and chills in addition to feeling weak and fatigued tired and couldn't get out of bed and so her called the paramedics and she was transferred to the ED. She denies any abdominal pain. She reports a history of of diverticulitis. 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 Diverticulitis Past Surgical History Cataract surgery Right breast lumpectomy Colonoscopy Tonsillectomy Appendectomy Coded Allergies: Vitamin K (Verified Adverse Reaction, Intermediate, UPSET STOMACH, 08/31/16 ) Medications Current Medications Sodium Chloride (NS 1000 ml Inj) 1,000 ml @ 1,000 mls/hr Q1H ONCE IV Last administered on 08/31/16 05:52; Start 08/31/16 at 05:15; Stop 08/31/16 at 06:14 ; Status DC Ondansetron HCl 4 mg 4 mg ONCE ONCE IV Last administered on 08/31/16 05:52; Start 08/31/16 at 05:15; Stop 08/31/16 at 05:16; Status DC Sodium Chloride 500 ml @ 500 mls/hr BOLUS ONCE IV Last administered on 07:52; Start 08/31/16 at 07:00; Stop 08/31/16 at 07:59; Status DC Sodium Chloride 1,000 ml @ 999 mls/hr BOLUS ONCE IV Last administered on 08/31 08:35; Start 08/31/16 at 08:00; Stop 08/31/16 at 09:00; Status DC Ceftriaxone Sodium 1000 mg/ Sodium Chloride 25 ml @ 50 mls/hr ONCE ONCE IV Last administered on 08/31/16 08:36; Start 08/31/16 at 08:00; Stop 08/31/16 at 08:29; Status DC Metronidazole (Flagyl 500 Mg Inj) 100 ml @ 100 mls/hr ONCE ONCE IV Last administered on 08/31/16 10:04; Start 08/31/16 at 08:00; Stop 08/31/16 at 08:59 ; Status DC Acetaminophen (Tylenol) 650 mg ONCE ONCE PO Last administered on 08/31/16 08: 36; Start 08/31/16 at 08:00; Stop 08/31/16 at 08:01; Status DC Diatrizoate Meglum/ Diatrizoate Sod ( Gastrodejah Liq) 18 ml STK-MED ONCE .ROUTE Last administered on 08/31/16 08:36; Start 08/31/16 at 08:26; Stop at 08:27; Status DC Iohexol (Omnipaque 350 Inj) 81 ml STK-MED ONCE IV Last administered on 09:34; Start 08/31/16 at 09:34; Stop 08/31/16 at 09:35; Status DC Potassium Phosphate 500 mg 500 mg ONCE ONCE PO Last administered on 08/31/16 12:29; Start 08/31/16 at 11:15; Stop 08/31/16 at 11:16; Status DC Sodium Chloride (NS 1000 ml Inj) 1,000 ml @ 100 mls/hr Q10H IV Last administered on 08/31/16 12:08; Start 08/31/16 at 11:03 IV Flush (NS Flush) 2 ml UNSCH PRN FLUSH FLUSH AFTER USING IV ACCESS; Start at 11:15 IV Flush (NS Flush) 2 ml BID FLUSH ; Start 08/31/16 at 21:00 Acetaminophen (Tylenol) 650 mg Q4H PRN PO TEMP > 100.4 Last administered on 16:21; Start 08/31/16 at 11:15 Ondansetron HCl (Zofran Inj) 4 mg Q6H PRN IVP NAUSEA OR VOMITING; Start at 11:15 Prochlorperazine (Compazine Supp) 25 mg Q12H PRN AK NAUSEA OR VOMITING; Start 08/31/16 at 11:15 Bisacodyl (Dulcolax Supp) 10 mg DAILY PRN AK CONSTIPATION; Start 08/31/16 at 11 :15 Sennosides (Senokot) 17.2 mg Q12H PRN PO CONSTIPATION; Start 08/31/16 at 11:15 Enoxaparin Sodium 40 mg 40 mg Q24H SQ Last administered on 08/31/16 12:02; Start 08/31/16 at 12:00 Metronidazole 100 ml @ 100 mls/hr Q8H IV Last administered on 08/31/16 16:24 ; Start 08/31/16 at 16:00 Ciprofloxacin/ Dextrose (Cipro 400 Mg Premix) 200 ml @ 200 mls/hr Q8H IV Last administered on 08/31/16 13:14; Start 08/31/16 at 12:00 Hydroxychloroquine Sulfate (Plaquenil) 200 mg BID PO ; Start 08/31/16 at 21:00 Levothyroxine Sodium (Synthroid) 100 mcg DAILY@06 PO ; Start 09/01/16 at 06:00 Methylprednisolone (Medrol) 4 mg DAILY PO ; Start 09/01/16 at 09:00 Multivitamins/ Minerals Therapeutic (Theragran M Tab) 1 tab DAILY PO ; Start 09/01/16 at 09:00 Patient Own Medication 125 ea Q7D SQ Rheumatoid arthritis; Start 08/31/16 at 11: 30; Status Hold Ferrous Sulfate (Ferrous Sulfate) 325 mg DAILY PO NS; Start 09/01/16 at 09:00 Albuterol Sulfate (Albuterol Neb) 1.25 mg Q2HR NEB PRN NEB SOB/WHEEZING; Start 08/31/16 at 14:00 Lactobacillus Acidophilus (Lactinex) 1 tab Q12HR PO ; Start 08/31/16 at 21:00 Family History Mother had a PE Sr. had diabetes Social History Former tobacco use, quit 16 years ago, smoked half pack per day since age 19 No alcohol use Lives at home with her . Review of Systems ROS Review of systems Patient denies any headache dizziness blurry vision, denies any chest pain shortness of breath cough fever chills, Denies any palpitations or fatigue denies any polyuria dysuria hematuria, denies any numbness tingling or weakness, denies any skin rash pruritus or jaundice, denies any easy bruising or bleeding tendency, denies any recent change in mood GI Exam Vitals I&O Vital Signs Date Time Temp Pulse Resp B/P Pulse Ox O2 Delivery O2 Flow Rate FiO2 08/31/16 19:57 98 Nasal Cannula 2.00 08/31/16 18:08 99.5 08/31/16 17:12 101.6 08/31/16 16:18 100.5 08/31/16 15:21 99.4 75 25 98 Nasal Cannula 2 08/31/16 12:10 98.6 74 16 115/58 Nasal Cannula 2 96 08/31/16 10:04 98.5 08/31/16 09:00 84 16 127/97 97 Nasal Cannula 2 08/31/16 07:00 87 15 142/63 97 Nasal Cannula 2 08/31/16 05:52 16 95 Nasal Cannula 2 08/31/16 04:56 16 08/31/16 04:54 98.9 86 16 161/69 94 I/O 08/30/16 08/30/16 08/30/16 08/31/16 08/31/16 08/31/16 07:00 15:00 23:00 07:00 15:00 23:00 Output Total 1500 ml 400 ml Balance -1500 ml -400 ml Output Urine Total 1500 ml 400 ml # Voids 0 Imaging Last Impressions Abdomen/Pelvis CT 08/31/16 0628 Signed Impressions: Service Date/Time: Wednesday, August 31, 2016 06:40 - CONCLUSION: 1. Florid diverticulosis with chronic diverticular disease but I don't see high grade acute inflammatory changes. This study without intravenous or oral contrast suggests extraluminal fluid and air collections within the pelvic cavity as above. Recommend repeating CT of the abdomen and pelvis with intravenous and oral contrast for further evaluation. 2. There is a elongated stone of the left ureteropelvic junction causing mild obstructive uropathy. 3. Prominent extrarenal pelvis on the right without evidence of acute right-sided obstructive uropathy. Haider England MD Chest X-Ray 08/31/16 5147 Signed Impressions: Service Date/Time: Wednesday, August 31, 2016 05:32 - CONCLUSION: Chronic interstitial lung disease and mild cardiomegaly similar to before. No acute cardiopulmonary disease demonstrated. Haider England MD Laboratory Test 08/31/16 08/31/16 08/31/16 08/31/16 05:20 05:25 05:30 08:24 White Blood Count 8.4 TH/MM3 Red Blood Count 4.29 MIL/MM3 Hemoglobin 13.0 GM/DL Hematocrit 38.0 % Mean Corpuscular Volume 88.6 FL Mean Corpuscular Hemoglobin 30.4 PG Mean Corpuscular Hemoglobin 34.3 % Concent Red Cell Distribution Width 13.7 % Platelet Count 246 TH/MM3 Mean Platelet Volume 7.8 FL Neutrophils (%) (Auto) 83.7 % Lymphocytes (%) (Auto) 8.8 % Monocytes (%) (Auto) 7.1 % Eosinophils (%) (Auto) 0.1 % Basophils (%) (Auto) 0.3 % Neutrophils # (Auto) 7.0 TH/MM3 Lymphocytes # (Auto) 0.7 TH/MM3 Monocytes # (Auto) 0.6 TH/MM3 Eosinophils # (Auto) 0.0 TH/MM3 Basophils # (Auto) 0.0 TH/MM3 CBC Comment DIFF FINAL Differential Comment Sodium Level 134 MEQ/L Potassium Level 4.3 MEQ/L Chloride Level 102 MEQ/L Carbon Dioxide Level 24.9 MEQ/L Anion Gap 7 MEQ/L Blood Urea Nitrogen 17 MG/DL Creatinine 0.85 MG/DL Estimat Glomerular Filtration 65 ML/MIN Rate Random Glucose 127 MG/DL Calcium Level 8.6 MG/DL Total Bilirubin 0.5 MG/DL Aspartate Amino Transf 76 U/L (AST/SGOT) Alanine Aminotransferase 73 U/L (ALT/SGPT) Alkaline Phosphatase 88 U/L Total Creatine Kinase 116 U/L Creatine Kinase MB 0.6 NG/ML Troponin I LESS THAN 0.02 NG/ML C-Reactive Protein 2.98 MG/DL 2.80 MG/DL B-Type Natriuretic Peptide 56 PG/ML Total Protein 6.8 GM/DL Albumin 2.9 GM/DL Lipase 121 U/L Thyroid Stimulating Hormone 1.600 uIU/ML 3rd Gen Urine Color YELLOW Urine Turbidity CLEAR Urine pH 7.0 Urine Specific [place] 1.014 Urine Protein NEG mg/dL Urine Glucose (UA) NEG mg/dL Urine Ketones NEG mg/dL Urine Occult Blood NEG Urine Nitrite NEG Urine Bilirubin NEG Urine Urobilinogen LESS THAN 2.0 MG/DL Urine Leukocyte Esterase NEG Urine RBC 11 /hpf Urine WBC 3 /hpf Urine Hyaline Casts 1 /lpf Urine Mucus FEW /lpf Microscopic Urinalysis Comment CULT NOT INDICATED Lactic Acid Level 1.8 mmol/L 0.9 mmol/L Prothrombin Time 11.3 SEC Prothromb Time International 1.0 RATIO Ratio Activated Partial 24.9 SEC Thromboplast Time Phosphorus Level 1.8 MG/DL Magnesium Level 1.7 MG/DL Date/Time Procedure Status Source Growth 08/31/16 08:27 Aerobic Blood Culture Received Blood Peripheral Pending 08/31/16 08:27 Anaerobic Blood Culture Received Blood Peripheral Pending Physical Examination HEENT: Pupils round and reactive to light; normocephalic; atraumatic; no jaundice. Throat is clear. NECK: Neck is supple, no JVD, no lymphadenopathy. CHEST: Chest is clear to auscultation and percussion. CARDIAC: Regular rate and rhythm with no murmur gallop or rubs. ABDOMEN: Soft, nondistended, nontender; no hepatosplenomegaly; bowel sounds are present in all four quadrants. EXTREMITIES: No clubbing, cyanosis, or edema. SKIN: Normal; no rash; no jaundice. CHEF PASSENGER VESSEL: No focal deficits; alert and oriented times three. Assessment and Plan Plan Patient presenting with abdominal pain nausea vomiting diarrhea and chills is found to have diverticulitis with what appears to be an abscess At this point I do agree with current supportive measures Continue with hydration and antibiotics Once advanced her diet should be low residue diet while she heals and then this should be advanced to high-fiber diet I do agree with surgical evaluation She will need serial abdominal examination and reevaluation of the imaging to assess for the need to drain We will defer to the general surgery service for any further action No further GI recommendations at this point we will sign off Chester Vazquez MD Aug 31, 2016 21:08
[2016-08-31] MEDS: HYDROXYCHLOROQUINE SULFATE 200 MG TAB PO SCH (21:30)
[2016-09-01] MEDS: CIPROFLOXACIN 400 MG PREMIX 200 ML IV SCH ×3 (04:00→21:25)
[2016-09-01 04:23] VITALS: BP 139/59; PULSE 81; RESP 16; TEMP 100.6; O2SAT 98
[2016-09-01 06:06] LABS: AUTOMATED NEUTROPHIL # 6.6 TH/MM3 (1.8-7.7); BASOPHIL % 0.6 % (0.0-2.0); EOSINOPHIL % 0.1 % (0.0-4.0); HEMATOCRIT 34.2 % (35.0-46.0); HEMO FLAGS DIFF FINAL; LYMPH % 11.9 % (9.0-44.0); MEAN CELL VOLUME 89.4 FL (80.0-100.0); MEAN CORPUSCULAR HEMOGLOBIN 29.5 PG (27.0-34.0); MEAN CORPUSCULAR HGB CONC 33.1 % (32.0-36.0); MONO % 10.3 % (0.0-8.0); NEUT % 77.1 % (16.0-70.0); PLATELET COUNT 177 TH/MM3 (150-450); RED BLOOD COUNT 3.82 MIL/MM3 (4.00-5.30); RED CELL DISTRIBUTION WIDTH 13.5 % (11.6-17.2); WHITE BLOOD COUNT 8.6 TH/MM3 (4.0-11.0)
[2016-09-01] MEDS: ACETAMINOPHEN 325 MG TAB PO PRN (06:25)
[2016-09-01] MEDS: LEVOTHYROXINE SODIUM 100 MCG TAB PO SCH (06:25)
[2016-09-01 06:35] LABS: BICARBONATE 21.3 MEQ/L (21.0-32.0); POTASSIUM 3.5 MEQ/L (3.5-5.1)
[2016-09-01 08:36] VITALS: O2SAT 98
[2016-09-01] MEDS: SODIUM CHLORIDE 0.9% FLUSH 5 ML FLUSH FLUSH SCH ×2 (08:48→21:25)
[2016-09-01] MEDS: HYDROXYCHLOROQUINE SULFATE 200 MG TAB PO SCH ×2 (08:48→21:26)
[2016-09-01] MEDS: LACTOBACILLUS ACIDOPHILUS TAB PO SCH ×2 (08:48→21:25)
[2016-09-01] MEDS: FERROUS SULFATE 325 MG (65 MG ELEMENTAL IRON) TAB PO SCH (08:48)
[2016-09-01] MEDS: MULTIVITAMINS/MINERALS THERAPEUTIC TAB PO SCH (08:48)
[2016-09-01] MEDS: metroNIDAZOLE 500 MG INJ 100 ML IV SCH ×3 (08:48→16:09)
[2016-09-01] MEDS: SODIUM CHLOR 0.9% 1000 ML INJ 1,000 ML IV SCH ×2 (08:51→16:09)
[2016-09-01] MEDS: methylPREDNISolone 4 MG TAB PO SCH (08:55)
[2016-09-01 09:15] VITALS: BP 109/55; PULSE 73; RESP 17; TEMP 98; O2SAT 95
--- NOTE | 2016-09-01 10:36 | HHI.PR ---
Subjective Remarks Follow-up for diverticular abscess. Patient reports multiple episodes of loose stools overnight. She had one episode of vomiting last night. Otherwise she's been tolerating clear liquids. She had fevers overnight. She denies any abdominal pain. Objective Vitals Vital Signs Date Time Temp Pulse Resp B/P Pulse Ox O2 Delivery O2 Flow Rate FiO2 09/01/16 09:15 98.0 73 17 109/55 95 09/01/16 08:36 98 Nasal Cannula 2.00 09/01/16 04:23 100.6 81 16 139/59 98 08/31/16 19:57 98 Nasal Cannula 2.00 08/31/16 19:45 97.6 73 14 116/60 99 08/31/16 18:08 99.5 08/31/16 17:12 101.6 08/31/16 16:18 100.5 08/31/16 15:21 99.4 75 25 98 Nasal Cannula 2 08/31/16 12:10 98.6 74 16 115/58 Nasal Cannula 2 96 I/O 08/31/16 08/31/16 08/31/16 09/01/16 09/01/16 09/01/16 07:00 15:00 23:00 07:00 15:00 23:00 Intake Total 1226 ml Output Total 1500 ml 400 ml 1400 ml Balance -1500 ml -400 ml -174 ml Intake Oral 240 ml IV Total 986 ml Output Urine Total 1500 ml 400 ml 1400 ml # Voids 0 Result Diagram: 09/01/16 0541 09/01/16 0541 Imaging Last Impressions Abdomen/Pelvis CT 08/31/16 0628 Signed Impressions: Service Date/Time: Wednesday, August 31, 2016 06:40 - CONCLUSION: 1. Florid diverticulosis with chronic diverticular disease but I don't see high grade acute inflammatory changes. This study without intravenous or oral contrast suggests extraluminal fluid and air collections within the pelvic cavity as above. Recommend repeating CT of the abdomen and pelvis with intravenous and oral contrast for further evaluation. 2. There is a elongated stone of the left ureteropelvic junction causing mild obstructive uropathy. 3. Prominent extrarenal pelvis on the right without evidence of acute right-sided obstructive uropathy. Haider England MD Chest X-Ray 08/31/16 0105 Signed Impressions: Service Date/Time: Wednesday, August 31, 2016 05:32 - CONCLUSION: Chronic interstitial lung disease and mild cardiomegaly similar to before. No acute cardiopulmonary disease demonstrated. Haider England MD Objective Remarks GENERAL: Well-developed well-nourished. In no acute distress. SKIN: Warm and dry. No lesions noted. HEENT: Normocephalic. Pupils equal and round. Mucous membranes pink and moist. CARDIOVASCULAR: Regular rate and rhythm. No murmur appreciated. RESPIRATORY: No accessory muscle use. Clear to auscultation. Breath sounds equal bilaterally. GASTROINTESTINAL: Abdomen soft, non-tender, nondistended. Bowel sounds x4. MUSCULOSKELETAL: No obvious deformities. No clubbing or cyanosis. No edema. NEUROLOGICAL: Awake and alert. No focal neurological deficits. Moves upper and lower extremities spontaneously. Normal speech. PSYCHIATRIC: Appropriate mood and affect; insight and judgment normal. A/P Problem List: (1) Colonic diverticular abscess ICD Code: K57.20 Status: Acute Assessment and Plan 80-year-old female with a past medical history of RA, hypothyroidism, COPD, lung mass, diverticulitis who presented with chills, vomiting, and diarrhea and was found to have diverticular abscess Diverticular abscess: CT abdomen and pelvis showed 2.7 x 2.3 cm soft tissue collection directly superior to the sigmoid colon, with suspected decompressed diverticular abscess. Tmax 101.6 on 08/31. No leukocytosis. Lactic acid within normal limits. Blood cultures pending. General surgery was consulted, recommended conservative management for now, following. Continue IV Flagyl and Cipro. Consulted gastroenterology, signed off. ID consulted, appreciate specialist input. Clear liquids for now, diet per surgery. IVF. Lactinex. COPD: History of interstitial lung disease and pulmonary nodules. Follows with Dr. Bruce as outpatient who is monitoring the lung findings. Not on O2 at home. O2 and nebs as needed. Hypothyroidism: Chronic, stable. Continue levothyroxine. Rheumatoid arthritis: Continue methylprednisolone, hydroxychloroquine, Abatacept. Generalized weakness: Secondary to the above. PT/OT consult. DVT prophylaxis: Lovenox Written by Keo Parra, acting as scribe for Dr. Crook on 09/01/16 at 10:52. The documentation accurately reflects the work performed [id number] by me Dr. Crook on 09/01/16 at 10:52. Discharge Planning Disposition pending clinical course. Keo Parra Sep 01, 2016 10:36 Melany Crook MD Sep 01, 2016 13:18
--- NOTE | 2016-09-01 11:00 | HHI.PR ---
Subjective Subjective Notes Resting in bed Not much appetite No abdominal pain Objective Vitals/I&O Vital Signs Date Time Temp Pulse Resp B/P Pulse Ox O2 Delivery O2 Flow Rate FiO2 09/01/16 09:15 98.0 73 17 109/55 95 09/01/16 08:36 Nasal Cannula 2.00 08/31/16 12:10 96 Labs Laboratory Tests Test 09/01/16 05:41 White Blood Count 8.6 Red Blood Count 3.82 Hemoglobin 11.3 Hematocrit 34.2 Mean Corpuscular Volume 89.4 Mean Corpuscular Hemoglobin 29.5 Mean Corpuscular Hemoglobin 33.1 Concent Red Cell Distribution Width 13.5 Platelet Count 177 Mean Platelet Volume 7.5 Neutrophils (%) (Auto) 77.1 Lymphocytes (%) (Auto) 11.9 Monocytes (%) (Auto) 10.3 Eosinophils (%) (Auto) 0.1 Basophils (%) (Auto) 0.6 Neutrophils # (Auto) 6.6 Lymphocytes # (Auto) 1.0 Monocytes # (Auto) 0.9 Eosinophils # (Auto) 0.0 Basophils # (Auto) 0.0 CBC Comment DIFF FINAL Differential Comment Sodium Level 138 Potassium Level 3.5 Chloride Level 107 Carbon Dioxide Level 21.3 Anion Gap 10 Blood Urea Nitrogen 7 Creatinine 0.62 Estimat Glomerular Filtration 93 Rate Random Glucose 59 Calcium Level 7.6 Date/Time Procedure Status Source Growth 08/31/16 08:27 Aerobic Blood Culture Received Blood Peripheral Pending 08/31/16 08:27 Anaerobic Blood Culture Received Blood Peripheral Pending Cardiovascular: Regular Lungs: Clear Abdomen: Non-distended, Non-tender Extremities: Other (multiple bruises on BUE ---healing ) A/P Assessment and Plan 80 year old female with diverticular abscess -Continue IVF -Continue IV antibiotics -Tolerating clears -Febrile overnight but now afebrile -Continue non operative management of abscess Attending Statement pt seen at bedside no issue tolerating liquids pt may need ct to follow up abscess Attestation The exam, history, and the medical decision-making described in the above note were completed with the assistance of the mid-level provider. I reviewed and agree with the findings presented. I attest that I had a [id number] encounter with the patient on the same day, and personally performed and documented my assessment and findings in the medical record. Yvette Millsb 1, 2017 11:00 Wil Wang MD Sep 08, 2016 12:40
[2016-09-01 12:12] VITALS: BP 113/51; PULSE 73; RESP 18; TEMP 98; O2SAT 98
[2016-09-01] MEDS: ENOXAPARIN SODIUM 40 MG/0.4 ML SYRINGE SQ SCH (12:21)
--- NOTE | 2016-09-01 17:21 | PD.ID.CON ---
History of Present Illness Service ID Consult Requested By Keo BLAIR. Reason for Consult Evaluation and Mment of Diverticular abscess. Primary Care Physician Anil Cevallos MD Diagnoses: History of Present Illness is a 80 y/o CF with a past medical history of RA who is on once a month Orencia (Abatacept) which is a disease modifying agent (DMARD), prednisone, methotrexate, Plaquanil. She reports since her DMARD agent was started a year ago her prednisone has been gradually being tapered off. Her medical history is also significant for hypothyroidism, COPD, lung mass, diverticulitis. With this background patient reports she presented to ED with chills, vomiting, and diarrhea. The patient states that the night prior to admission she began shaking uncontrollably. She began having nausea and vomiting, and diarrhea, nonbloody. She was having generalized weakness and was unable to get up, so her spouse called the paramedics. They state they checked her temperature and at one point it was over 102. She denies any abdominal pain. She was admitted last year and had an episode of diverticulitis during admission. She was prescribed Cipro and Flagyl at the time, but only took about 5 days' worth, because she felt like the antibiotics made her feel worse and was afraid the Cipro would cause C. difficile. She denies any chest pain, shortness breath, cough. She states that she had a colonoscopy done about a year ago with her processor grain, Dr. Vazquez, and was told she would need another colonoscopy for 10 years. She underwent blood cultures on admission which are negative. She also had a CT A/P shows florid diverticulosis with chronic diverticular disease and extraluminal fluid and air collections within the pelvic cavity as above. There is a elongated stone of the left ureteropelvic junction causing mild obstructive uropathy. Prominent extrarenal pelvis on the right without evidence of acute right-sided obstructive uropathy. Patient has been evaluated by gastroenterology as well as, general surgery. Gen. surgery recommends nonoperative management with IV antibiotics. Interventional radiology cannot reach the fluid collection in the pelvis. Infectious disease is consulted for evaluation and management of diverticular abscess. Review of Systems Constitutional: COMPLAINS OF: Fever, Chills, Change in appetite, DENIES: Diaphoretic episodes, Fatigue, Weight gain, Weight loss, Dizziness, Night Sweats Endocrine: DENIES: Abnorml menstrual pattern, Heat/cold intolerance, Polydipsia , Polyuria, Polyphagia Eyes: DENIES: Blurred vision, Diplopia, Eye inflammation, Eye pain, Vision loss , Photosensitivity, Double Vision Ears, nose, mouth, throat: DENIES: Tinnitus, Hearing loss, Vertigo, Nasal discharge, Oral lesions, Throat pain, Hoarseness, Ear Pain, Running Nose, Epistaxis, Sinus Pain, Toothache, Odynophagia Respiratory: DENIES: Apneas, Cough, Snoring, Wheezing, Hemoptysis, Sputum production, Shortness of breath Cardiovascular: DENIES: Chest pain, Palpitations, Syncope, Dyspnea on Exertion , PND, Lower Extremity Edema, Orthopnea, Claudication Gastrointestinal: COMPLAINS OF: Abdominal pain, Diarrhea, Nausea, Vomiting, Anorexia, DENIES: Black stools, Bloody stools, Constipation, Difficulty Swallowing Genitourinary: DENIES: Abnormal vaginal bleeding, Dysmenorrhea, Dyspareunia, Sexual dysfunction, Urinary frequency, Urinary incontinence, Urgency, Hematuria , Dysuria, Nocturia, Vaginal discharge Musculoskeletal: COMPLAINS OF: Joint pain, DENIES: Muscle aches, Stiffness, Joint Swelling, Back pain, Neck pain Integumentary: DENIES: Abnormal pigmentation, Pruritus, Rash, Nail changes, Breast masses, Breast skin changes, Nipple discharge Hematologic/lymphatic: COMPLAINS OF: Bruising, DENIES: Lymphadenopathy Immunologic/allergic: DENIES: Eczema, Urticaria Neurologic: COMPLAINS OF: Poor Balance, DENIES: Abnormal gait, Headache, Localized weakness, Paresthesias, Seizures, Speech Problems, Tremor Psychiatric: DENIES: Anxiety, Confusion, Mood changes, Depression, Hallucinations, Agitation, Suicidal Ideation, Homicidal Ideation, Delusions Past Family Social History Allergies: Coded Allergies: Vitamin K (Verified Adverse Reaction, Intermediate, UPSET STOMACH, 08/31/16 ) Past Medical History Rheumatoid arthritis Hypothyroidism 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 Diverticulitis Past Surgical History Cataract surgery Right breast lumpectomy Colonoscopy Tonsillectomy Appendectomy Reported Medications Reported Meds & Active Scripts Active Reported Reclast Inj (Zoledronic Acid) 5 Mg/100 Ml Inj 5 Mg IV Q365D Orencia Clickjet Inj (Abatacept) 125 Mg/Ml Pen 125 Mg SQ Q7D Hydroxychloroquine (Hydroxychloroquine Sulfate) 200 Mg Tab 200 Mg PO BID Takw with food Methylprednisolone 4 Mg Tab 4 Mg PO DAILY Levothyroxine (Levothyroxine Sodium) 100 Mcg Tab 100 Mcg PO DAILY Iron (Ferrous Sulfate) 50 Mg Tab 65 Mg PO DAILY Multivitamin Adults (Multiple Vitamins W/ Minerals) 1 Tab 1 Tab PO DAILY Active Ordered Medications Current Medications Medications (Trade) Dose Ordered Sig/Susu Route Start Time Stop Time Status Last Admin (NS 1000 ml Inj) 1,000 ml @ 100 mls/hr Q10H IV 08/31/16 11:03 09/01/16 16:09 (NS Flush) 2 ml UNSCH PRN FLUSH 08/31/16 11:15 (NS Flush) 2 ml BID FLUSH 08/31/16 21:00 09/01/16 08:48 (Tylenol) 650 mg Q4H PRN PO 08/31/16 11:15 09/01/16 06:25 (Zofran Inj) 4 mg Q6H PRN IVP 08/31/16 11:15 (Compazine Supp) 25 mg Q12H PRN [place] 08/31/16 11:15 (Dulcolax Supp) 10 mg DAILY PRN [place] 08/31/16 11:15 (Senokot) 17.2 mg Q12H PRN PO 08/31/16 11:15 Enoxaparin Sodium 40 mg 40 mg Q24H SQ 08/31/16 12:00 09/01/16 12:21 (Cipro 400 Mg Premix) 200 ml @ 200 mls/hr Q8H IV 08/31/16 12:00 09/01/16 12:22 (Plaquenil) 200 mg BID PO 08/31/16 21:00 09/01/16 08:48 (Synthroid) 100 mcg DAILY@06 PO 09/01/16 06:00 09/01/16 06:25 (Medrol) 4 mg DAILY PO 09/01/16 09:00 09/01/16 08:55 (Theragran M Tab) 1 tab DAILY PO 09/01/16 09:00 09/01/16 08:48 Patient Own Medication 125 ea Q7D SQ 08/31/16 11:30 Hold (Ferrous Sulfate) 325 mg DAILY PO 09/01/16 09:00 09/01/16 08:48 (Lactinex) 1 tab Q12HR PO 08/31/16 21:00 09/01/16 08:48 Metronidazole 500 mg 500 mg Q8HR PO 09/01/16 22:00 (Diflucan 200 Mg Premix Bag) 100 ml @ 100 mls/hr Q24H IV 09/01/16 18:00 Family History Mother had a PE Sister had diabetes Social History Former tobacco use, quit 16 years ago, smoked half pack per day since age 19 No alcohol use Lives at home with her . Physical Exam Vital Signs Vital Signs Date Time Temp Pulse Resp B/P Pulse Ox O2 Delivery O2 Flow Rate FiO2 09/01/16 12:12 98.0 73 18 113/51 98 09/01/16 09:15 98.0 73 17 109/55 95 09/01/16 08:36 98 Nasal Cannula 2.00 09/01/16 04:23 100.6 81 16 139/59 98 08/31/16 19:57 98 Nasal Cannula 2.00 08/31/16 19:45 97.6 73 14 116/60 99 08/31/16 18:08 99.5 Physical Exam GENERAL: This is a well-nourished, well-developed patient, in no apparent distress. SKIN: No rashes. Multiple areas of ecchymoses. HEAD: Atraumatic. Normocephalic. No temporal or scalp tenderness. EYES: Pupils equal round and reactive. Extraocular motions intact. No scleral icterus. No injection or drainage. ENT: Nose without bleeding, purulent drainage or septal hematoma. Throat without erythema, tonsillar hypertrophy or exudate. Uvula midline. Airway patent. NECK: Trachea midline. Supple, nontender, no meningeal signs. CARDIOVASCULAR: HS audible. RESPIRATORY: Clear to auscultation. Breath sounds equal bilaterally. No wheezes , rales, or rhonchi. GASTROINTESTINAL: Abdomen soft, non-tender, nondistended. MUSCULOSKELETAL: Changes s/o arthritis of joints. NEUROLOGICAL: Awake and alert. Grossly non focal Psych: cooperative IV line sites with no e/o infection. Laboratory Laboratory Tests Test 09/01/16 05:41 White Blood Count 8.6 Red Blood Count 3.82 Hemoglobin 11.3 Hematocrit 34.2 Mean Corpuscular Volume 89.4 Mean Corpuscular Hemoglobin 29.5 Mean Corpuscular Hemoglobin 33.1 Concent Red Cell Distribution Width 13.5 Platelet Count 177 Mean Platelet Volume 7.5 Neutrophils (%) (Auto) 77.1 Lymphocytes (%) (Auto) 11.9 Monocytes (%) (Auto) 10.3 Eosinophils (%) (Auto) 0.1 Basophils (%) (Auto) 0.6 Neutrophils # (Auto) 6.6 Lymphocytes # (Auto) 1.0 Monocytes # (Auto) 0.9 Eosinophils # (Auto) 0.0 Basophils # (Auto) 0.0 CBC Comment DIFF FINAL Differential Comment Sodium Level 138 Potassium Level 3.5 Chloride Level 107 Carbon Dioxide Level 21.3 Anion Gap 10 Blood Urea Nitrogen 7 Creatinine 0.62 Estimat Glomerular Filtration 93 Rate Random Glucose 59 Calcium Level 7.6 Date/Time Procedure Status Source Growth 08/31/16 08:27 Aerobic Blood Culture - Preliminary Resulted Blood Peripheral NO GROWTH IN 1 DAY 08/31/16 08:27 Anaerobic Blood Culture - Preliminary Resulted Blood Peripheral NO GROWTH IN 1 DAY Result Diagram: 09/01/16 0541 09/01/16 0541 Imaging Last Impressions Abdomen/Pelvis CT 08/31/16 0628 Signed Impressions: Service Date/Time: Wednesday, August 31, 2016 06:40 - CONCLUSION: 1. Florid diverticulosis with chronic diverticular disease but I don't see high grade acute inflammatory changes. This study without intravenous or oral contrast suggests extraluminal fluid and air collections within the pelvic cavity as above. Recommend repeating CT of the abdomen and pelvis with intravenous and oral contrast for further evaluation. 2. There is a elongated stone of the left ureteropelvic junction causing mild obstructive uropathy. 3. Prominent extrarenal pelvis on the right without evidence of acute right-sided obstructive uropathy. Haider England MD Chest X-Ray 08/31/16 7770 Signed Impressions: Service Date/Time: Wednesday, August 31, 2016 05:32 - CONCLUSION: Chronic interstitial lung disease and mild cardiomegaly similar to before. No acute cardiopulmonary disease demonstrated. Haider England MD Assessment and Plan Assessment and Plan Possible Sepsis in an Immune compromised patient (she may not mount typical signs/symptoms like WBC and temps but history of temps 102 F prior to arrival) Source of infection: Diverticular abscess Rheumatoid arthritis on multiple Immune suppressing agents. Immune compromised host. On prednisone at risk for perforation as well as adrenal insufficiency as she has been on senior care steroids. Recs: Continue Cipro IV Continue Flagyl switch to oral (if she tolerates flagyl will consider switching all meds to oral). If she does not then IV antibiotics may be needed. Start Diflucan IV Patient reports stopping her antibiotics at day 5 as she felt sick. Follow cultures Follow clinically. d/w GI d/w RN, Surgery PA: ok new kidd. Emmie Lindsay MD Sep 01, 2016 17:21
[2016-09-01] MEDS: FLUCONAZOLE 200 MG PREMIX BAG 100 ML IV SCH (18:24)
[2016-09-01 20:50] VITALS: BP 140/63; PULSE 72; RESP 18; TEMP 98.8; O2SAT 93
[2016-09-01] MEDS: metroNIDAZOLE 500 MG TAB PO SCH (21:26)
[2016-09-02] VITALS (7 sets, daily range): BP systolic 125–157; BP diastolic 59–70; PULSE 68–75; RESP 18–20; TEMP 97.8–98.5; O2SAT 93–96
[2016-09-02] MEDS: SODIUM CHLOR 0.9% 1000 ML INJ 1,000 ML IV SCH (02:54)
[2016-09-02] MEDS: CIPROFLOXACIN 400 MG PREMIX 200 ML IV SCH ×3 (05:02→20:59)
[2016-09-02] MEDS: LEVOTHYROXINE SODIUM 100 MCG TAB PO SCH (05:43)
[2016-09-02] MEDS: metroNIDAZOLE 500 MG TAB PO SCH ×3 (05:43→22:26)
[2016-09-02 06:39] LABS: BICARBONATE 21.6 MEQ/L (21.0-32.0); MAGNESIUM 1.8 MG/DL (1.5-2.5); POTASSIUM 3.1 MEQ/L (3.5-5.1)
[2016-09-02 06:50] LABS: AUTOMATED NEUTROPHIL # 5.5 TH/MM3 (1.8-7.7); BASOPHIL % 0.3 % (0.0-2.0); EOSINOPHIL # 0.1 TH/MM3 (0-0.4); EOSINOPHIL % 0.8 % (0.0-4.0); HEMATOCRIT 33.4 % (35.0-46.0); HEMO FLAGS DIFF FINAL; LYMPH % 19.3 % (9.0-44.0); LYMPHOCYTE # 1.6 TH/MM3 (1.0-4.8); MEAN CELL VOLUME 89.6 FL (80.0-100.0); MEAN CORPUSCULAR HEMOGLOBIN 30.2 PG (27.0-34.0); MEAN CORPUSCULAR HGB CONC 33.7 % (32.0-36.0); MONO % 13.1 % (0.0-8.0); NEUT % 66.5 % (16.0-70.0); PLATELET COUNT 183 TH/MM3 (150-450); RED BLOOD COUNT 3.73 MIL/MM3 (4.00-5.30); RED CELL DISTRIBUTION WIDTH 13.6 % (11.6-17.2); WHITE BLOOD COUNT 8.3 TH/MM3 (4.0-11.0)
[2016-09-02] MEDS: HYDROXYCHLOROQUINE SULFATE 200 MG TAB PO SCH ×2 (08:28→20:59)
[2016-09-02] MEDS: LACTOBACILLUS ACIDOPHILUS TAB PO SCH ×2 (08:28→20:59)
[2016-09-02] MEDS: methylPREDNISolone 4 MG TAB PO SCH (08:28)
[2016-09-02] MEDS: MULTIVITAMINS/MINERALS THERAPEUTIC TAB PO SCH (08:28)
[2016-09-02] MEDS: FERROUS SULFATE 325 MG (65 MG ELEMENTAL IRON) TAB PO SCH (08:28)
[2016-09-02] MEDS: SODIUM CHLORIDE 0.9% FLUSH 5 ML FLUSH FLUSH SCH ×2 (08:29→20:59)
[2016-09-02] MEDS ORDERED: POTASSIUM CHLORIDE 10 MEQ CONTROLLED RELEASE TAB PO ONE (10:15)
[2016-09-02] MEDS: ENOXAPARIN SODIUM 40 MG/0.4 ML SYRINGE SQ SCH (11:05)
--- NOTE | 2016-09-02 11:37 | HHI.PR ---
Subjective Remarks Follow up for diverticular abscess. The patient reports some mild lower abdominal pain while having a bowel movement today. No fevers overnight. She reports some nausea and small episode of vomiting this morning but has mostly been tolerating her clear liquids and would like to advance diet. She has no other medical complaints at this time. Objective Vitals Vital Signs Date Time Temp Pulse Resp B/P Pulse Ox O2 Delivery O2 Flow Rate FiO2 09/02/16 11:32 98.3 69 20 157/66 93 09/02/16 06:42 94 21 09/02/16 06:11 98.1 73 18 142/65 94 09/02/16 00:05 98.5 75 18 126/60 93 09/01/16 20:50 98.8 72 18 140/63 93 09/01/16 12:12 98.0 73 18 113/51 98 I/O 09/01/16 09/01/16 09/01/16 09/02/16 09/02/16 09/02/16 07:00 15:00 23:00 07:00 15:00 23:00 Intake Total 1226 ml 1002 ml Output Total 1400 ml 2000 ml Balance -174 ml -998 ml Intake Oral 240 ml IV Total 986 ml 1002 ml Output Urine Total 1400 ml 2000 ml # Bowel Movements 2 Result Diagram: 09/02/16 0552 09/02/16 0552 Imaging Last Impressions Abdomen/Pelvis CT 08/31/16 0628 Signed Impressions: Service Date/Time: Wednesday, August 31, 2016 06:40 - CONCLUSION: 1. Florid diverticulosis with chronic diverticular disease but I don't see high grade acute inflammatory changes. This study without intravenous or oral contrast suggests extraluminal fluid and air collections within the pelvic cavity as above. Recommend repeating CT of the abdomen and pelvis with intravenous and oral contrast for further evaluation. 2. There is a elongated stone of the left ureteropelvic junction causing mild obstructive uropathy. 3. Prominent extrarenal pelvis on the right without evidence of acute right-sided obstructive uropathy. Haider England MD Chest X-Ray 08/31/16 5815 Signed Impressions: Service Date/Time: Wednesday, August 31, 2016 05:32 - CONCLUSION: Chronic interstitial lung disease and mild cardiomegaly similar to before. No acute cardiopulmonary disease demonstrated. Haider England MD Objective Remarks GENERAL: Well-nourished, well-developed elderly female patient in [facility]. SKIN: Warm and dry. No rash. HEAD: Normocephalic. Atraumatic. NECK: Supple. Trachea midline. CARDIOVASCULAR: Regular rate and rhythm. S1, S2 noted. No murmur appreciated. RESPIRATORY: No accessory muscle use. Clear to auscultation. Breath sounds equal bilaterally. GASTROINTESTINAL: Abdomen soft, nondistended, LLQ TTP. Normoactive bowel sounds x4. MUSCULOSKELETAL: No obvious deformities. Extremities without clubbing, cyanosis , or edema. NEUROLOGICAL: Awake and alert. No obvious cranial nerve deficits. Motor grossly within normal limits. Normal speech. PSYCHIATRIC: Appropriate mood and affect; insight and judgment normal. Medications and IVs Current Medications Medications (Trade) Dose Ordered Sig/Susu Route Start Time Stop Time Status Last Admin (NS Flush) 2 ml UNSCH PRN FLUSH 08/31/16 11:15 (NS Flush) 2 ml BID FLUSH 08/31/16 21:00 09/02/16 08:29 (Tylenol) 650 mg Q4H PRN PO 08/31/16 11:15 09/01/16 06:25 (Zofran Inj) 4 mg Q6H PRN IVP 08/31/16 11:15 (Compazine Supp) 25 mg Q12H PRN [place] 08/31/16 11:15 (Dulcolax Supp) 10 mg DAILY PRN [place] 08/31/16 11:15 (Senokot) 17.2 mg Q12H PRN PO 08/31/16 11:15 Enoxaparin Sodium 40 mg 40 mg Q24H SQ 08/31/16 12:00 09/02/16 11:05 (Cipro 400 Mg Premix) 200 ml @ 200 mls/hr Q8H IV 08/31/16 12:00 09/02/16 11:05 (Plaquenil) 200 mg BID PO 08/31/16 21:00 09/02/16 08:28 (Synthroid) 100 mcg DAILY@06 PO 09/01/16 06:00 09/02/16 05:43 (Medrol) 4 mg DAILY PO 09/01/16 09:00 09/02/16 08:28 (Theragran M Tab) 1 tab DAILY PO 09/01/16 09:00 09/02/16 08:28 Patient Own Medication 125 ea Q7D SQ 08/31/16 11:30 Hold (Ferrous Sulfate) 325 mg DAILY PO 09/01/16 09:00 09/02/16 08:28 (Lactinex) 1 tab Q12HR PO 08/31/16 21:00 09/02/16 08:28 Metronidazole 500 mg 500 mg Q8HR PO 09/01/16 22:00 09/02/16 13:11 (Diflucan 200 Mg Premix Bag) 100 ml @ 100 mls/hr Q24H IV 09/01/16 18:00 09/01/16 18:24 Urinary Catheter: Yes Assessment to: Continue A/P Problem List: (1) Colonic diverticular abscess ICD Code: K57.20 Status: Acute Assessment and Plan 80-year-old female with a past medical history of RA, hypothyroidism, COPD, lung mass, diverticulitis who presented with chills, vomiting, and diarrhea and was found to have diverticular abscess Diverticular abscess: CT abd/pelvis showed 2.7 x 2.3 cm soft tissue collection directly superior to the sigmoid colon, with suspected decompressed diverticular abscess. Tmax 101.6 on 08/31. No leukocytosis. Lactic acid wnl. Blood cultures with NGTD. General surgery consulted, recommended conservative management for now, following. Consulted gastroenterology, signed off. ID consulted, continued IV Cipro, po flagyl, added IV diflucan. Advance diet per surgery, now on full liquids. Continue IVF. Lactinex. Possible Sepsis: in immunocompromised patient on multiple immune suppressing agents. She likely will not show typical signs/symptoms such as elevated WBCs however with temps 102F prior t arrival. Continue abx as above. Blood cultures with NGTD. On IVF. COPD: History of interstitial lung disease and pulmonary nodules. Follows with Dr. Bruce as outpatient who is monitoring the lung findings. Not on O2 at home. O2 and nebs as needed. Hypothyroidism: Chronic, stable. Continue levothyroxine. Rheumatoid arthritis: Continue methylprednisolone, hydroxychloroquine, Abatacept. Generalized weakness: Secondary to the above. PT/OT consult. DVT prophylaxis: Lovenox Written by Hannah Garcia, acting as scribe for Dr. Louis on 09/02/16 at 11: 37. Attending Statement The documentation accurately reflects the work performed [id number] by me on 09/02/16 at 11:37. Hannah Garcia PA-C Sep 02, 2016 11:37 Reno Holloway MD Sep 05, 2016 22:56
[2016-09-02] MEDS: FLUCONAZOLE 200 MG PREMIX BAG 100 ML IV SCH (17:19)
[2016-09-03 04:00] VITALS: BP 133/78; PULSE 68; RESP 18; TEMP 97.6; O2SAT 97
[2016-09-03] MEDS: CIPROFLOXACIN 400 MG PREMIX 200 ML IV SCH ×2 (04:01→11:43)
[2016-09-03] MEDS: metroNIDAZOLE 500 MG TAB PO SCH ×3 (06:13→21:00)
[2016-09-03] MEDS: LEVOTHYROXINE SODIUM 100 MCG TAB PO SCH (06:13)
[2016-09-03 08:06] VITALS: O2SAT 93
[2016-09-03 08:12] VITALS: BP 144/65; PULSE 64; RESP 18; TEMP 98; O2SAT 96
[2016-09-03] MEDS: HYDROXYCHLOROQUINE SULFATE 200 MG TAB PO SCH ×2 (09:01→21:00)
[2016-09-03] MEDS: MULTIVITAMINS/MINERALS THERAPEUTIC TAB PO SCH (09:01)
[2016-09-03] MEDS: methylPREDNISolone 4 MG TAB PO SCH (09:01)
[2016-09-03] MEDS: FERROUS SULFATE 325 MG (65 MG ELEMENTAL IRON) TAB PO SCH (09:01)
[2016-09-03] MEDS: SODIUM CHLORIDE 0.9% FLUSH 5 ML FLUSH FLUSH SCH ×2 (09:02→21:00)
[2016-09-03] MEDS: LACTOBACILLUS ACIDOPHILUS TAB PO SCH ×2 (09:03→21:00)
--- NOTE | 2016-09-03 10:37 | HHI.FF ---
Face to Face Verification Diagnosis: (1) Colonic diverticular abscess (2) Rheumatoid aortitis (3) Hypothyroidism (4) Chronic obstructive pulmonary disease (5) Lung nodules (6) Generalized weakness Physical Therapy Order: Evaluate and Treat, Improve ambulation, Strength and gait training Home Health Nursing Order: Medical education Signs/symptoms of disease process Nursing assessment with vital signs I have seen patient Jeri Tafoya on 09/03/16. My clinical findings support the need for the requested home health care services because: Ltd mobility - disease progression Patient has SOB Deconditioned w/ increased weakness Limited ability to care for self Infection w/ risk of complications I certify that my clinical findings support that this patient is homebound because: Hx COPD- exertion dyspnea/weakness Unsteady gait/balance Unsafe to leave home unassisted Unable to use public transportation Hannah Garcia PA-C Sep 03, 2016 10:37 Melany Crook MD Sep 06, 2016 19:51
[2016-09-03 11:40] VITALS: BP 122/57; PULSE 74; RESP 18; O2SAT 96
[2016-09-03] MEDS: ENOXAPARIN SODIUM 40 MG/0.4 ML SYRINGE SQ SCH (11:43)
--- NOTE | 2016-09-03 12:38 | HHI.PR ---
Subjective Remarks Follow up for diverticular abscess. The patient reports she had some mild abdominal pain yesterday but no abdominal pain today. Denies any further nausea or vomiting. No fevers/chills. She is tolerating full liquid diet. She has had a few episodes of diarrhea. Objective Vitals Vital Signs Date Time Temp Pulse Resp B/P Pulse Ox O2 Delivery O2 Flow Rate FiO2 09/03/16 11:40 74 18 122/57 96 09/03/16 08:12 98.0 64 18 144/65 96 09/03/16 08:06 93 21 09/03/16 04:00 97.6 68 18 133/78 97 09/02/16 20:01 97.8 74 18 125/70 96 09/02/16 19:13 94 09/02/16 15:55 98.0 68 20 128/59 94 I/O 09/02/16 09/02/16 09/02/16 09/03/16 09/03/16 09/03/16 07:00 15:00 23:00 07:00 15:00 23:00 Intake Total 900 ml Output Total 450 ml Balance 900 ml -450 ml Intake Oral 400 ml IV Total 500 ml Output Urine Total 450 ml # Voids 2 1 # Bowel Movements 1 Result Diagram: 09/02/16 0552 09/02/16 0552 Imaging Last Impressions Abdomen/Pelvis CT 08/31/16 0628 Signed Impressions: Service Date/Time: Wednesday, August 31, 2016 06:40 - CONCLUSION: 1. Florid diverticulosis with chronic diverticular disease but I don't see high grade acute inflammatory changes. This study without intravenous or oral contrast suggests extraluminal fluid and air collections within the pelvic cavity as above. Recommend repeating CT of the abdomen and pelvis with intravenous and oral contrast for further evaluation. 2. There is a elongated stone of the left ureteropelvic junction causing mild obstructive uropathy. 3. Prominent extrarenal pelvis on the right without evidence of acute right-sided obstructive uropathy. Haider England MD Chest X-Ray 08/31/16 2887 Signed Impressions: Service Date/Time: Wednesday, August 31, 2016 05:32 - CONCLUSION: Chronic interstitial lung disease and mild cardiomegaly similar to before. No acute cardiopulmonary disease demonstrated. Haider England MD Objective Remarks GENERAL: Well-nourished, well-developed elderly female patient in [place]. SKIN: Warm and dry. No rash. HEAD: Normocephalic. Atraumatic. NECK: Supple. Trachea midline. CARDIOVASCULAR: Regular rate and rhythm. S1, S2 noted. No murmur appreciated. RESPIRATORY: No accessory muscle use. Clear to auscultation. Breath sounds equal bilaterally. GASTROINTESTINAL: Abdomen soft, nondistended, mild LLQ TTP. Normoactive bowel sounds x4. MUSCULOSKELETAL: No obvious deformities. Extremities without clubbing, cyanosis , or edema. NEUROLOGICAL: Awake and alert. No obvious cranial nerve deficits. Motor grossly within normal limits. Normal speech. PSYCHIATRIC: Appropriate mood and affect; insight and judgment normal. Medications and IVs Current Medications Medications (Trade) Dose Ordered Sig/Susu Route Start Time Stop Time Status Last Admin (NS Flush) 2 ml UNSCH PRN FLUSH 08/31/16 11:15 (NS Flush) 2 ml BID FLUSH 08/31/16 21:00 09/03/16 09:02 (Tylenol) 650 mg Q4H PRN PO 08/31/16 11:15 09/01/16 06:25 (Zofran Inj) 4 mg Q6H PRN IVP 08/31/16 11:15 (Compazine Supp) 25 mg Q12H PRN [place] 08/31/16 11:15 (Dulcolax Supp) 10 mg DAILY PRN [place] 08/31/16 11:15 (Senokot) 17.2 mg Q12H PRN PO 08/31/16 11:15 Enoxaparin Sodium 40 mg 40 mg Q24H SQ 08/31/16 12:00 09/03/16 11:43 (Cipro 400 Mg Premix) 200 ml @ 200 mls/hr Q8H IV 08/31/16 12:00 09/03/16 11:43 (Plaquenil) 200 mg BID PO 08/31/16 21:00 09/03/16 09:01 (Synthroid) 100 mcg DAILY@06 PO 09/01/16 06:00 09/03/16 06:13 (Medrol) 4 mg DAILY PO 09/01/16 09:00 09/03/16 09:01 (Theragran M Tab) 1 tab DAILY PO 09/01/16 09:00 09/03/16 09:01 Patient Own Medication 125 ea Q7D SQ 08/31/16 11:30 Hold (Ferrous Sulfate) 325 mg DAILY PO 09/01/16 09:00 09/03/16 09:01 (Lactinex) 1 tab Q12HR PO 08/31/16 21:00 09/03/16 09:03 Metronidazole 500 mg 500 mg Q8HR PO 09/01/16 22:00 09/03/16 06:13 (Diflucan 200 Mg Premix Bag) 100 ml @ 100 mls/hr Q24H IV 09/01/16 18:00 09/02/16 17:19 Urinary Catheter: No Vascular Central Line Catheter: No A/P Problem List: (1) Colonic diverticular abscess ICD Code: K57.20 Status: Acute Assessment and Plan 80-year-old female with a past medical history of RA, hypothyroidism, COPD, lung mass, diverticulitis who presented with chills, vomiting, and diarrhea and was found to have diverticular abscess Diverticular abscess: CT abd/pelvis showed 2.7 x 2.3 cm soft tissue collection directly superior to the sigmoid colon, with suspected decompressed diverticular abscess. Tmax 101.6 on 08/31. No leukocytosis. Lactic acid wnl. Blood cultures with NGTD. General surgery consulted, recommended conservative management for now, following. Consulted gastroenterology, signed off. ID consulted, continued IV Cipro, po flagyl, added IV diflucan. Advance diet per surgery, now on full liquids. Continue IVF. Lactinex. Possible Sepsis: in immunocompromised patient on multiple immune suppressing agents. She likely will not show typical signs/symptoms such as elevated WBCs however with temps 102F prior t arrival. Continue abx as above. Blood cultures with NGTD. On IVF. COPD: History of interstitial lung disease and pulmonary nodules. Follows with Dr. Bruce as outpatient who is monitoring the lung findings. Not on O2 at home. O2 and nebs as needed. Hypothyroidism: Chronic, stable. Continue levothyroxine. Rheumatoid arthritis: Continue methylprednisolone, hydroxychloroquine, Abatacept. Generalized weakness: Secondary to the above. PT/OT consult. DVT prophylaxis: Lovenox Written by Hannah Garcia, acting as scribe for Dr. Louis on 09/03/16 at 12: 37. Attending Statement The documentation accurately reflects the work performed [id number] by me on at 12:37. Hannah Garcia PA-C Sep 03, 2016 12:37 Reno Holloway MD Sep 05, 2016 22:58
[2016-09-03 15:32] VITALS: BP 126/60; PULSE 70; RESP 17; TEMP 98.2; O2SAT 95
[2016-09-03] MEDS: FLUCONAZOLE 200 MG PREMIX BAG 100 ML IV SCH (17:02)
--- NOTE | 2016-09-03 18:29 | HHI.IDPN ---
Subjective Subjective Remarks is a 80 y/o CF with a past medical history of RA who is on once a month Orencia (Abatacept) which is a disease modifying agent (DMARD), prednisone, methotrexate, Plaquanil. ID following for Diverticular abscess Overnight events reviewed No fever No rash No diarrhea Antibiotics Cipro IV Flagyl oral Diflucan IV Lines Line sites with no e/o infection Past Medical History reviewed Allergies: Coded Allergies: Vitamin K (Verified Adverse Reaction, Intermediate, UPSET STOMACH, 08/31/16 ) Objective . Vital Signs Date Time Temp Pulse Resp B/P Pulse Ox O2 Delivery O2 Flow Rate FiO2 09/03/16 15:32 98.2 70 17 126/60 95 09/03/16 11:40 74 18 122/57 96 09/03/16 08:12 98.0 64 18 144/65 96 09/03/16 08:06 93 21 09/03/16 04:00 97.6 68 18 133/78 97 09/02/16 20:01 97.8 74 18 125/70 96 09/02/16 19:13 94 09/02/16 09/02/16 09/03/16 15:00 23:00 07:00 Intake Total 900 ml Output Total 450 ml Balance 900 ml -450 ml Intake Oral 400 ml IV Total 500 ml Output Urine Total 450 ml # Voids 2 1 # Bowel Movements 1 . Laboratory Tests Test 09/02/16 05:52 White Blood Count 8.3 TH/MM3 Red Blood Count 3.73 MIL/MM3 Hemoglobin 11.3 GM/DL Hematocrit 33.4 % Mean Corpuscular Volume 89.6 FL Mean Corpuscular Hemoglobin 30.2 PG Mean Corpuscular Hemoglobin 33.7 % Concent Red Cell Distribution Width 13.6 % Platelet Count 183 TH/MM3 Mean Platelet Volume 7.7 FL Neutrophils (%) (Auto) 66.5 % Lymphocytes (%) (Auto) 19.3 % Monocytes (%) (Auto) 13.1 % Eosinophils (%) (Auto) 0.8 % Basophils (%) (Auto) 0.3 % Neutrophils # (Auto) 5.5 TH/MM3 Lymphocytes # (Auto) 1.6 TH/MM3 Monocytes # (Auto) 1.1 TH/MM3 Eosinophils # (Auto) 0.1 TH/MM3 Basophils # (Auto) 0.0 TH/MM3 CBC Comment DIFF FINAL Differential Comment Laboratory Tests Test 09/02/16 05:52 Sodium Level 138 MEQ/L Potassium Level 3.1 MEQ/L Chloride Level 107 MEQ/L Carbon Dioxide Level 21.6 MEQ/L Anion Gap 9 MEQ/L Blood Urea Nitrogen 5 MG/DL Creatinine 0.75 MG/DL Estimat Glomerular Filtration 75 ML/MIN Rate Random Glucose 127 MG/DL Calcium Level 8.1 MG/DL Magnesium Level 1.8 MG/DL Imaging Last Impressions Abdomen/Pelvis CT 08/31/16 0628 Signed Impressions: Service Date/Time: Wednesday, August 31, 2016 06:40 - CONCLUSION: 1. Florid diverticulosis with chronic diverticular disease but I don't see high grade acute inflammatory changes. This study without intravenous or oral contrast suggests extraluminal fluid and air collections within the pelvic cavity as above. Recommend repeating CT of the abdomen and pelvis with intravenous and oral contrast for further evaluation. 2. There is a elongated stone of the left ureteropelvic junction causing mild obstructive uropathy. 3. Prominent extrarenal pelvis on the right without evidence of acute right-sided obstructive uropathy. Haider England MD Chest X-Ray 08/31/16 0507 Signed Impressions: Service Date/Time: Wednesday, August 31, 2016 05:32 - CONCLUSION: Chronic interstitial lung disease and mild cardiomegaly similar to before. No acute cardiopulmonary disease demonstrated. Haider England MD Physical Exam GENERAL: This is a well-nourished, well-developed patient, in no apparent distress. SKIN: No rashes. Multiple areas of ecchymoses. HEAD: Atraumatic. Normocephalic. No temporal or scalp tenderness. EYES: Pupils equal round and reactive. Extraocular motions intact. No scleral icterus. No injection or drainage. ENT: Nose without bleeding, purulent drainage or septal hematoma. Throat without erythema, tonsillar hypertrophy or exudate. Uvula midline. Airway patent. NECK: Trachea midline. Supple, nontender, no meningeal signs. CARDIOVASCULAR: HS audible. RESPIRATORY: Clear to auscultation. Breath sounds equal bilaterally. No wheezes , rales, or rhonchi. GASTROINTESTINAL: Abdomen soft, non-tender, nondistended. MUSCULOSKELETAL: Changes s/o arthritis of joints. NEUROLOGICAL: Awake and alert. Grossly non focal Psych: cooperative IV line sites with no e/o infection. Assessment & Plan Remarks Possible Sepsis in an Immune compromised patient (she may not mount typical signs/symptoms like WBC and temps but history of temps 102 F prior to arrival) Source of infection: Diverticular abscess Rheumatoid arthritis on multiple Immune suppressing agents. Immune compromised host. On prednisone at risk for perforation as well as adrenal insufficiency as she has been on senior living steroids. Recs: Switch Cipro to oral. Continue Flagyl oral Switch Diflucan to oral. Follow on oral regimen to see if she tolerates regimen. Follow cultures Follow clinically. d/w Surgery plan for repeat CT A/P this weekend. He will order. d/w patient and spouse: she will need follow up with Gen Surgery and Dr.Ejie Ward her ID MD. Will likely need 2-4 weeks of IV depending on repeat imaging. Emmie Lindsay MD Sep 03, 2016 18:29
[2016-09-03 20:12] VITALS: BP 143/64; PULSE 71; RESP 20; TEMP 97.5; O2SAT 96
[2016-09-03] MEDS: CIPROFLOXACIN 500 MG TAB PO SCH (21:00)
[2016-09-04 00:05] VITALS: BP 146/67; PULSE 69; RESP 20; TEMP 97.8; O2SAT 95
[2016-09-04 04:02] VITALS: BP_SYST 162; BP_SYST 171; BP_DIAS 71; PULSE 62; RESP 20; TEMP 98.1; O2SAT 95
[2016-09-04 04:54] LABS: HEMATOCRIT 31.3 % (35.0-46.0); MEAN CELL VOLUME 87.1 FL (80.0-100.0); MEAN CORPUSCULAR HEMOGLOBIN 29.9 PG (27.0-34.0); MEAN CORPUSCULAR HGB CONC 34.3 % (32.0-36.0); PLATELET COUNT 205 TH/MM3 (150-450); RED BLOOD COUNT 3.59 MIL/MM3 (4.00-5.30); RED CELL DISTRIBUTION WIDTH 13.6 % (11.6-17.2); REVIEW FLAG FINAL; WHITE BLOOD COUNT 6.5 TH/MM3 (4.0-11.0)
[2016-09-04] MEDS: LEVOTHYROXINE SODIUM 100 MCG TAB PO SCH (06:27)
[2016-09-04] MEDS: metroNIDAZOLE 500 MG TAB PO SCH ×3 (06:27→21:43)
[2016-09-04 08:00] VITALS: BP 137/62; PULSE 67; RESP 18; TEMP 97.7; O2SAT 95
--- NOTE | 2016-09-04 09:02 | HHI.PR ---
Subjective Subjective Notes no acute issues, tolerating diet, no fevers Objective Vitals/I&O Vital Signs Date Time Temp Pulse Resp B/P Pulse Ox O2 Delivery O2 Flow Rate FiO2 09/04/16 04:02 98.1 62 20 162/71 95 09/03/16 08:06 21 09/01/16 08:36 Nasal Cannula 2.00 Labs Laboratory Tests Test 09/04/16 04:26 White Blood Count 6.5 Red Blood Count 3.59 Hemoglobin 10.7 Hematocrit 31.3 Mean Corpuscular Volume 87.1 Mean Corpuscular Hemoglobin 29.9 Mean Corpuscular Hemoglobin 34.3 Concent Red Cell Distribution Width 13.6 Platelet Count 205 Mean Platelet Volume 7.5 Date/Time Procedure Status Source Growth 08/31/16 08:27 Aerobic Blood Culture - Preliminary Resulted Blood Peripheral NO GROWTH IN 3 DAYS 08/31/16 08:27 Anaerobic Blood Culture - Preliminary Resulted Blood Peripheral NO GROWTH IN 3 DAYS Cardiovascular: Regular Lungs: Clear Abdomen: Non-distended, Non-tender A/P Assessment and Plan diverticular abscess afebrile doing well PLAN Reg diet c/w po abx, ID following CTa/p to reassess abscess- if improvement ok to d/c home will continue to follow Wil Wang MD Sep 04, 2016 09:02
[2016-09-04] MEDS: CIPROFLOXACIN 500 MG TAB PO SCH ×2 (09:21→21:43)
[2016-09-04] MEDS: MULTIVITAMINS/MINERALS THERAPEUTIC TAB PO SCH (09:21)
[2016-09-04] MEDS: SODIUM CHLORIDE 0.9% FLUSH 5 ML FLUSH FLUSH SCH ×2 (09:21→21:55)
[2016-09-04] MEDS: HYDROXYCHLOROQUINE SULFATE 200 MG TAB PO SCH ×2 (09:21→21:44)
[2016-09-04] MEDS: FERROUS SULFATE 325 MG (65 MG ELEMENTAL IRON) TAB PO SCH (09:21)
[2016-09-04] MEDS: FLUCONAZOLE 100 MG TAB PO SCH (09:21)
[2016-09-04] MEDS: LACTOBACILLUS ACIDOPHILUS TAB PO SCH ×2 (09:21→21:43)
[2016-09-04] MEDS: methylPREDNISolone 4 MG TAB PO SCH (09:21)
[2016-09-04] MEDS ORDERED: DIATRIZOATE MEGLUM/DIATRIZOATE SOD 9 ML CUP PO ONE (09:45)
--- NOTE | 2016-09-04 11:04 | HHI.PR ---
Subjective Remarks Follow-up for diverticular abscess. Patient seen with at bedside. The patient has been tolerating full diet with no issues. She denies any abdominal pain today. They state the plan was to transition to oral antibiotics prior to discharge, tolerating. Objective Vitals Vital Signs Date Time Temp Pulse Resp B/P Pulse Ox O2 Delivery O2 Flow Rate FiO2 09/04/16 08:00 97.7 67 18 137/62 95 09/04/16 04:02 98.1 62 20 162/71 95 09/04/16 00:05 97.8 69 20 146/67 95 09/03/16 20:12 97.5 71 20 143/64 96 09/03/16 15:32 98.2 70 17 126/60 95 09/03/16 11:40 74 18 122/57 96 I/O 09/03/16 09/03/16 09/03/16 09/04/16 09/04/16 09/04/16 07:00 15:00 23:00 07:00 15:00 23:00 Output Total 450 ml 2 ml Balance -450 ml -2 ml Output Urine Total 450 ml Stool Total 2 ml # Voids 1 Result Diagram: 09/04/16 0426 09/02/16 0552 Imaging Last Impressions Abdomen/Pelvis CT 08/31/16 0628 Signed Impressions: Service Date/Time: Wednesday, August 31, 2016 06:40 - CONCLUSION: 1. Florid diverticulosis with chronic diverticular disease but I don't see high grade acute inflammatory changes. This study without intravenous or oral contrast suggests extraluminal fluid and air collections within the pelvic cavity as above. Recommend repeating CT of the abdomen and pelvis with intravenous and oral contrast for further evaluation. 2. There is a elongated stone of the left ureteropelvic junction causing mild obstructive uropathy. 3. Prominent extrarenal pelvis on the right without evidence of acute right-sided obstructive uropathy. Haider England MD Chest X-Ray 08/31/16 0680 Signed Impressions: Service Date/Time: Wednesday, August 31, 2016 05:32 - CONCLUSION: Chronic interstitial lung disease and mild cardiomegaly similar to before. No acute cardiopulmonary disease demonstrated. Haider England MD Objective Remarks GENERAL: Well-developed well-nourished. In no acute distress. SKIN: Warm and dry. No lesions noted. HEENT: Normocephalic. Pupils equal and round. Mucous membranes pink and moist. CARDIOVASCULAR: Regular rate and rhythm. No murmur appreciated. RESPIRATORY: No accessory muscle use. Clear to auscultation. Breath sounds equal bilaterally. GASTROINTESTINAL: Abdomen soft, non-tender, nondistended. Bowel sounds x4. MUSCULOSKELETAL: No obvious deformities. No clubbing or cyanosis. No edema. NEUROLOGICAL: Awake and alert. No focal neurological deficits. Moves upper and lower extremities spontaneously. Normal speech. PSYCHIATRIC: Appropriate mood and affect; insight and judgment normal. A/P Problem List: (1) Colonic diverticular abscess ICD Code: K57.20 Status: Acute Assessment and Plan 80-year-old female with a past medical history of RA, hypothyroidism, COPD, lung mass, diverticulitis who presented with chills, vomiting, and diarrhea and was found to have diverticular abscess Diverticular abscess: CT abd/pelvis showed 2.7 x 2.3 cm soft tissue collection directly superior to the sigmoid colon, with suspected decompressed diverticular abscess. Tmax 101.6 on 08/31. No leukocytosis. Lactic acid wnl. Blood cultures with NGTD. General surgery consulted, recommended conservative management for now, following. Consulted gastroenterology, signed off. ID consulted, antibiotics including Cipro, Flagyl, Diflucan, change to oral. Diet advanced to full. Continue IVF. Lactinex. Repeat abdominal CT ordered by surgery 09/04. Possible Sepsis: in immunocompromised patient on multiple immune suppressing agents, she likely will not show typical signs/symptoms such as elevated WBCs however with temps 102F prior to arrival. Continue abx as above. Blood cultures with NGTD. On IVF. COPD: History of interstitial lung disease and pulmonary nodules. Follows with Dr. Bruce as outpatient who is monitoring the lung findings. Not on O2 at home. O2 and nebs as needed. Hypothyroidism: Chronic, stable. Continue levothyroxine. Rheumatoid arthritis: Continue methylprednisolone, hydroxychloroquine, Abatacept. Generalized weakness: Secondary to the above. PT/OT consult. DVT prophylaxis: Lovenox Written by Keo Parra, acting as scribe for Dr. Louis on 09/04/16 at 11:01. Discharge Planning Follow up results of repeat abdominal pelvis CT. Discharge planning once cleared by general surgery and ID. Attending Statement The documentation accurately reflects the work performed [id number] by me on 09/04/16 at 11:01. Keo Parra Sep 04, 2016 11:04 Reno Holloway MD Sep 05, 2016 22:55
[2016-09-04] MEDS: ENOXAPARIN SODIUM 40 MG/0.4 ML SYRINGE SQ SCH (11:15)
[2016-09-04 12:26] VITALS: BP 138/65; PULSE 71; RESP 18; TEMP 95.9; O2SAT 96
[2016-09-04 16:20] VITALS: BP 141/67; PULSE 74; RESP 18; TEMP 97.9; O2SAT 97
[2016-09-04] MEDS ORDERED: IOHEXOL 350 MG/ML 10 ML VIAL (for RAD DIAG) IV ONE (18:31)
--- NOTE | 2016-09-04 19:32 | RADRPT ---
EXAM DATE/TIME: 09/04/2016 18:26 [facility] COMPARISON: No previous studies available for comparison. INDICATIONS : Abdominal pain; evaluate for diverticular abscess. IV CONTRAST: 95 cc Omnipaque 350 (iohexol) IV ORAL CONTRAST: Prescribed oral contrast ingested. RADIATION DOSE: 9.38 CTDIvol (mGy) MEDICAL HISTORY : Carcinoma, breast. Chronic obstructive pulmonary disease. SURGICAL HISTORY : Appendectomy. Left lumpectomy. ENCOUNTER: Initial ACUITY: 4 - 6 days PAIN SCALE: 3/10 LOCATION: Bilateral lower quadrant TECHNIQUE: Volumetric scanning of the abdomen and pelvis was performed. Using automated exposure control and ad justment of the mA and/or kV according to patient size, radiation dose was kept as low as reasonably achievable to obtain optimal diagnostic quality images. FINDINGS: Comparison is August 31. Over the last 4 days the complex fluid collection above the sigmoid colon i s stable to slightly decreased and probably represents a small decompressed diverticular abscess. On today's exam this measures about 2.2 cm in diameter. There is severe sigmoid diverticulosis with abno rmal mural thickening throughout the sigmoid. The lung bases demonstrate some fibrotic changes and mild honeycombing. No significant abnormality in the liver, spleen, adrenals, kidneys pancreas. No calcified gallstones. No bowel obstruction. No free air. CONCLUSION: 1. Stable to slight decrease in size of small complex fluid collection superior to sigmoid colon, pos sibly a decompressed diverticular abscess. No drainable fluid collections. Severe sigmoid diverticulo sis persists. Judah Little MD on September 04, 2016 at 19:24 Board Certified Radiologist. This report was verified electronically.
[2016-09-04 20:09] VITALS: O2SAT 96
[2016-09-05] VITALS: BP 142/71; PULSE 73; RESP 20; TEMP 97.3; O2SAT 97
[2016-09-05] MEDS: metroNIDAZOLE 500 MG TAB PO SCH ×2 (06:46→13:14)
[2016-09-05] MEDS: LEVOTHYROXINE SODIUM 100 MCG TAB PO SCH (06:46)
[2016-09-05] MEDS: CIPROFLOXACIN 500 MG TAB PO SCH (07:42)
[2016-09-05] MEDS: HYDROXYCHLOROQUINE SULFATE 200 MG TAB PO SCH ×2 (07:43→21:50)
[2016-09-05] MEDS: FLUCONAZOLE 100 MG TAB PO SCH (07:43)
[2016-09-05] MEDS: FERROUS SULFATE 325 MG (65 MG ELEMENTAL IRON) TAB PO SCH (07:43)
[2016-09-05] MEDS: methylPREDNISolone 4 MG TAB PO SCH (07:43)
[2016-09-05] MEDS: MULTIVITAMINS/MINERALS THERAPEUTIC TAB PO SCH (07:43)
[2016-09-05] MEDS: LACTOBACILLUS ACIDOPHILUS TAB PO SCH ×2 (07:43→21:50)
[2016-09-05] MEDS: SODIUM CHLORIDE 0.9% FLUSH 5 ML FLUSH FLUSH SCH ×2 (07:44→21:50)
[2016-09-05 08:00] VITALS: BP 133/63; PULSE 69; RESP 18; TEMP 98.1; O2SAT 98
--- NOTE | 2016-09-05 08:59 | HHI.PR ---
Subjective Subjective Notes no acute issues, no fevers, pain better, +bm Objective Vitals/I&O Vital Signs Date Time Temp Pulse Resp B/P Pulse Ox O2 Delivery O2 Flow Rate FiO2 09/05/16 02:48 21 09/05/16 00:00 97.3 73 20 142/71 97 09/01/16 08:36 Nasal Cannula 2.00 Cardiovascular: Regular Lungs: Clear Abdomen: Non-distended, Non-tender A/P Assessment and Plan diverticular abscess afebrile doing well PLAN Reg diet c/w po abx, ID following CTa/p to reassess abscess-better ok to d/c home from surgery stand point follow up in 3-4 weeks with Wil Mishra MD Sep 05, 2016 08:59
[2016-09-05 12:00] VITALS: BP 145/66; PULSE 72; RESP 18; TEMP 96; O2SAT 96
[2016-09-05] MEDS: ENOXAPARIN SODIUM 40 MG/0.4 ML SYRINGE SQ SCH (13:11)
[2016-09-05 13:43] LABS: BLOOD, URINE NEG (NEG); COMMENT (UR) CULT NOT INDICATED; CULTURE IF INDICATED CULT NOT INDICATED; GLUCOSE,URINE NEG (NEG); KETONE, URINE NEG (NEG); MUCUS URINE FEW /lpf (OCC); NITRITE,URINE NEG (NEG); SQUAMOUS EPITHELIAL CELL URINE <1 /hpf (0-5); URINE COLOR YELLOW (YELLW/STRAW)
[2016-09-05 13:59] LABS: AUTOMATED NEUTROPHIL # 8.5 TH/MM3 (1.8-7.7); BASOPHIL % 0.2 % (0.0-2.0); EOSINOPHIL % 0.2 % (0.0-4.0); HEMATOCRIT 36.6 % (35.0-46.0); HEMO FLAGS DIFF FINAL; LYMPH % 9.1 % (9.0-44.0); LYMPHOCYTE # 0.9 TH/MM3 (1.0-4.8); MEAN CELL VOLUME 87.7 FL (80.0-100.0); MEAN CORPUSCULAR HEMOGLOBIN 30.1 PG (27.0-34.0); MEAN CORPUSCULAR HGB CONC 34.3 % (32.0-36.0); MONO % 6.8 % (0.0-8.0); NEUT % 83.7 % (16.0-70.0); PLATELET COUNT 287 TH/MM3 (150-450); RED BLOOD COUNT 4.17 MIL/MM3 (4.00-5.30); RED CELL DISTRIBUTION WIDTH 13.7 % (11.6-17.2); WHITE BLOOD COUNT 10.2 TH/MM3 (4.0-11.0)
[2016-09-05 14:35] LABS: INDIRECT BILIRUBIN 0.3 MG/DL (0.0-0.8); TOTAL BILIRUBIN ADULT 0.4 MG/DL (0.2-1.0)
[2016-09-05 14:36] LABS: ALKALINE PHOSPHATASE 146 U/L (45-117); ALT (GPT) 89 U/L (10-53); ANION GAP 9 MEQ/L (5-15); AST (GOT) 94 U/L (15-37); BICARBONATE 27.7 MEQ/L (21.0-32.0); BLOOD UREA NITROGEN 11 MG/DL (7-18); CHLORIDE 100 MEQ/L (98-107); GLOMERULAR FILTRATION RATE 66 ML/MIN (>89); MAGNESIUM 1.9 MG/DL (1.5-2.5); POTASSIUM 3.8 MEQ/L (3.5-5.1); SODIUM (NA) 137 MEQ/L (136-145); TOTAL BILIRUBIN ADULT 0.4 MG/DL (0.2-1.0)
[2016-09-05] MEDS: PIPERACIL-TAZO 4.5 GM PREMIX 100 ML IV SCH ×2 (14:54→21:53)
[2016-09-05 16:00] VITALS: BP 125/60; PULSE 71; RESP 18; TEMP 96.7; O2SAT 97
[2016-09-05 17:30] VITALS: O2SAT 95
[2016-09-05 20:00] VITALS: BP 127/61; PULSE 73; RESP 18; TEMP 98.3; O2SAT 95
--- NOTE | 2016-09-05 23:07 | HHI.PR ---
Subjective Remarks Deferred entry - patient seen earlier at 10:30 am Patient denies abdominal pain, nausea or vomiting Denies fevers or chills Eating well and tolerating diet Stable vital signs Objective Vitals Vital Signs Date Time Temp Pulse Resp B/P Pulse Ox O2 Delivery O2 Flow Rate FiO2 09/05/16 20:00 98.3 73 18 127/61 95 09/05/16 17:30 95 09/05/16 16:00 96.7 71 18 125/60 97 09/05/16 12:00 96.0 72 18 145/66 96 09/05/16 08:00 98.1 69 18 133/63 98 09/05/16 02:48 21 09/05/16 00:00 97.3 73 20 142/71 97 I/O 09/04/16 09/04/16 09/04/16 09/05/16 09/05/16 09/05/16 07:00 15:00 23:00 07:00 15:00 23:00 Intake Total 1680 ml 240 ml 120 ml 360 ml 100 ml Output Total 200 ml 0 ml 250 ml Balance 1480 ml 240 ml 120 ml 110 ml 100 ml Intake Oral 1680 ml 240 ml 120 ml 360 ml IV Total 0 ml 100 ml Output Urine Total 200 ml 0 ml 250 ml # Voids 1 4 1 3 # Bowel Movements 4 2 Result Diagram: 09/05/16 1334 09/05/16 1334 Imaging Last Impressions Abdomen/Pelvis CT 09/04/16 0000 Signed Impressions: Service Date/Time: Sunday, September 04, 2016 18:26 - CONCLUSION: 1. Stable to slight decrease in size of small complex fluid collection superior to sigmoid colon, possibly a decompressed diverticular abscess. No drainable fluid collections. Severe sigmoid diverticulosis persists. Judah Little MD Chest X-Ray 08/31/16 0500 Signed Impressions: Service Date/Time: Wednesday, August 31, 2016 05:32 - CONCLUSION: Chronic interstitial lung disease and mild cardiomegaly similar to before. No acute cardiopulmonary disease demonstrated. Haider England MD Objective Remarks GENERAL: Well-developed well-nourished. In no acute distress. SKIN: Warm and dry. No lesions noted. HEENT: Normocephalic. Pupils equal and round. Mucous membranes pink and moist. CARDIOVASCULAR: Regular rate and rhythm. No murmur appreciated. RESPIRATORY: No accessory muscle use. Clear to auscultation. Breath sounds equal bilaterally. GASTROINTESTINAL: Abdomen soft, non-tender, nondistended. Bowel sounds x4. MUSCULOSKELETAL: No obvious deformities. No clubbing or cyanosis. No edema. NEUROLOGICAL: Awake and alert. No focal neurological deficits. Moves upper and lower extremities spontaneously. Normal speech. PSYCHIATRIC: Appropriate mood and affect; insight and judgment normal. Procedures None Medications and IVs Current Medications Medications (Trade) Dose Ordered Sig/Susu Route Start Time Stop Time Status Last Admin (NS Flush) 2 ml UNSCH PRN FLUSH 08/31/16 11:15 (NS Flush) 2 ml BID FLUSH 08/31/16 21:00 09/05/16 21:50 (Tylenol) 650 mg Q4H PRN PO 08/31/16 11:15 09/01/16 06:25 (Zofran Inj) 4 mg Q6H PRN IVP 08/31/16 11:15 (Compazine Supp) 25 mg Q12H PRN NM 08/31/16 11:15 (Dulcolax Supp) 10 mg DAILY PRN NM 08/31/16 11:15 (Senokot) 17.2 mg Q12H PRN PO 08/31/16 11:15 (Lovenox Inj) 40 mg Q24H SQ 08/31/16 12:00 09/05/16 13:11 (Plaquenil) 200 mg BID PO 08/31/16 21:00 09/05/16 21:50 (Synthroid) 100 mcg DAILY@06 PO 09/01/16 06:00 09/05/16 06:46 (Medrol) 4 mg DAILY PO 09/01/16 09:00 09/05/16 07:43 (Theragran M Tab) 1 tab DAILY PO 09/01/16 09:00 09/05/16 07:43 Patient Own Medication 125 ea Q7D SQ 08/31/16 11:30 Hold (Ferrous Sulfate) 325 mg DAILY PO 09/01/16 09:00 09/05/16 07:43 (Lactinex) 1 tab Q12HR PO 08/31/16 21:00 09/05/16 21:50 Fluconazole 100 mg 100 mg DAILY PO 09/04/16 09:00 09/05/16 07:43 (Zosyn 4.5 Gm Premix) 100 ml @ 200 mls/hr Q8H IV 09/05/16 15:00 09/05/16 21:53 Urinary Catheter: No Vascular Central Line Catheter: No A/P Problem List: (1) Colonic diverticular abscess ICD Code: K57.20 Status: Acute (2) Psychosis ICD Code: F29 Status: Acute Assessment and Plan 80-year-old female with a past medical history of RA, hypothyroidism, COPD, lung mass, diverticulitis who presented with chills, vomiting, and diarrhea and was found to have diverticular abscess Diverticular abscess: CT abd/pelvis showed 2.7 x 2.3 cm soft tissue collection directly superior to the sigmoid colon, with suspected decompressed diverticular abscess. Tmax 101.6 on 08/31. No leukocytosis. Lactic acid wnl. Blood cultures with NGTD. General surgery consulted, recommended conservative management for now, following. Consulted gastroenterology, signed off. ID consulted, antibiotics including Cipro, Flagyl, Diflucan, change to oral. Diet advanced to full. Continue IVF. Lactinex. Repeat abdominal CT ordered by surgery 09/04. 09/05 patient [address] diet. Repeat CT abdomen and pelvis showed stable to slight decrease in size of small complex fluid collection superior to sigmoid colon, possibly decompressed diverticular abscess. No drainable fluid collections. Severe sigmoid diverticulosis persists. Patient is requesting for the patient to be discharged. However explained to the patient' s that I will require to have infectious disease clear the patient first. Dr. Lindsay from infectious disease recommended that pending the CT abdomen and pelvis the patient might need IV antibiotics to go home. I contacted Dr Alejandra with the infectious disease on-call today and is covering for Dr. Lindsay. Discussed the case with him and he advised to stop oral Cipro and Flagyl since the patient had some hallucinations and to start IV zosyn until the patient gets evaluated by either him or Dr. Lindsay tomorrow. Possible Sepsis: in immunocompromised patient on multiple immune suppressing agents, she likely will not show typical signs/symptoms such as elevated WBCs however with temps 102F prior to arrival. Continue abx as above. Blood cultures with NGTD. On IVF. Sepsis resolved. COPD: History of interstitial lung disease and pulmonary nodules. Follows with Dr. Bruce as outpatient who is monitoring the lung findings. Not on O2 at home. O2 and nebs as needed. Hypothyroidism: Chronic, stable. Continue levothyroxine. Rheumatoid arthritis: Continue methylprednisolone, hydroxychloroquine, Abatacept. Generalized weakness: Secondary to the above. PT/OT consult. Visual hallucinations: As per RN report on patient report, the patient was experiencing some visual hallucinations that included seeing people and seeing clouds. This could be secondary to antibiotic therapy or due to acute psychosis the patient has some dementia. As above this case was discussed with ID who recommended discontinuation of oral ciprofloxacin oral Flagyl and to start IV Zosyn. DVT prophylaxis: Lovenox Discharge Planning Continue to monitor in the medical floor and to the patient is cleared by infectious disease to go home and a decision on whether the patient can go home on oral or IV antibiotics is made. Reno oHlloway MD Sep 05, 2016 23:07
[2016-09-06] VITALS: BP 130/60; PULSE 73; RESP 18; TEMP 97; O2SAT 96
[2016-09-06 04:00] VITALS: BP 150/70; PULSE 75; RESP 18; TEMP 97.1; O2SAT 96
[2016-09-06] MEDS: LEVOTHYROXINE SODIUM 100 MCG TAB PO SCH (06:08)
[2016-09-06] MEDS: PIPERACIL-TAZO 4.5 GM PREMIX 100 ML IV SCH (06:09)
[2016-09-06 08:00] VITALS: BP 125/60; PULSE 72; RESP 17; TEMP 98.3; O2SAT 96
[2016-09-06] MEDS: SODIUM CHLORIDE 0.9% FLUSH 5 ML FLUSH FLUSH SCH (08:12)
[2016-09-06] MEDS: HYDROXYCHLOROQUINE SULFATE 200 MG TAB PO SCH (08:13)
[2016-09-06] MEDS: MULTIVITAMINS/MINERALS THERAPEUTIC TAB PO SCH (08:13)
[2016-09-06] MEDS: LACTOBACILLUS ACIDOPHILUS TAB PO SCH (08:13)
[2016-09-06] MEDS: FLUCONAZOLE 100 MG TAB PO SCH (08:13)
[2016-09-06] MEDS: FERROUS SULFATE 325 MG (65 MG ELEMENTAL IRON) TAB PO SCH (08:13)
[2016-09-06] MEDS: methylPREDNISolone 4 MG TAB PO SCH (08:14)
--- NOTE | 2016-09-06 11:32 | HHI.PR ---
Subjective Subjective Notes no acute issues, tolerating po +bms, no hallucinations with zosyn Objective Vitals/I&O Vital Signs Date Time Temp Pulse Resp B/P Pulse Ox O2 Delivery O2 Flow Rate FiO2 09/06/16 08:00 98.3 72 17 125/60 96 09/05/16 02:48 21 Labs Laboratory Tests Test 09/05/16 09/05/16 11:32 13:34 Urine Color YELLOW Urine Turbidity CLEAR Urine pH 7.0 Urine Specific [place] 1.013 Urine Protein TRACE Urine Glucose (UA) NEG Urine Ketones NEG Urine Occult Blood NEG Urine Nitrite NEG Urine Bilirubin NEG Urine Urobilinogen LESS THAN 2.0 Urine Leukocyte Esterase TRACE Urine RBC 1 Urine WBC 2 Urine Squamous Epithelial <1 Cells Urine Mucus FEW Microscopic Urinalysis Comment CULT NOT INDICATED White Blood Count 10.2 Red Blood Count 4.17 Hemoglobin 12.6 Hematocrit 36.6 Mean Corpuscular Volume 87.7 Mean Corpuscular Hemoglobin 30.1 Mean Corpuscular Hemoglobin 34.3 Concent Red Cell Distribution Width 13.7 Platelet Count 287 Mean Platelet Volume 7.3 Neutrophils (%) (Auto) 83.7 Lymphocytes (%) (Auto) 9.1 Monocytes (%) (Auto) 6.8 Eosinophils (%) (Auto) 0.2 Basophils (%) (Auto) 0.2 Neutrophils # (Auto) 8.5 Lymphocytes # (Auto) 0.9 Monocytes # (Auto) 0.7 Eosinophils # (Auto) 0.0 Basophils # (Auto) 0.0 CBC Comment DIFF FINAL Differential Comment Sodium Level 137 Potassium Level 3.8 Chloride Level 100 Carbon Dioxide Level 27.7 Anion Gap 9 Blood Urea Nitrogen 11 Creatinine 0.84 Estimat Glomerular Filtration 66 Rate Random Glucose 114 Calcium Level 9.0 Phosphorus Level 3.1 Magnesium Level 1.9 Total Bilirubin 0.4 Direct Bilirubin 0.1 Indirect Bilirubin 0.3 Aspartate Amino Transf 94 (AST/SGOT) Alanine Aminotransferase 89 (ALT/SGPT) Alkaline Phosphatase 146 Total Protein 6.7 Albumin 3.0 Cardiovascular: Regular Lungs: Clear Abdomen: Non-distended, Non-tender A/P Assessment and Plan diverticular abscess afebrile doing well PLAN Reg diet d/c po abx, IV zosyn started ID following PICC for home abx CTa/p to reassess abscess-better ok to d/c home once HHC set up from surgery stand point follow up in 3-4 weeks with Wil Mishra MD Sep 06, 2016 11:32
[2016-09-06 12:00] VITALS: BP 127/70; PULSE 75; RESP 18; TEMP 97.7; O2SAT 96
[2016-09-06] MEDS ORDERED: LACT PO (12:46)
[2016-09-06] MEDS ORDERED: DIFL100T PO (12:46)
[2016-09-06] MEDS ORDERED: CIPR-9 PO (12:46)
[2016-09-06] MEDS ORDERED: METR-1 PO (12:46)
[2016-09-06] MEDS: ENOXAPARIN SODIUM 40 MG/0.4 ML SYRINGE SQ SCH (13:22)
[2016-09-06] MEDS ORDERED: AUGM875T PO (14:36)
--- NOTE | 2016-09-06 14:41 | HHI.IDPN ---
Subjective Subjective Remarks is a 80 y/o CF with a past medical history of RA who is on once a month Orencia (Abatacept) which is a disease modifying agent (DMARD), prednisone, methotrexate, Plaquanil. ID following for Diverticular abscess Overnight events reviewed No fever No rash No diarrhea Complains of hallucinations over the weekend with Cipro and Flagyl. thinks possible related to the closed room in the ED. but would like to avoid the combination. Antibiotics Zosyn IV Diflucan oral. Lines Line sites with no e/o infection Past Medical History reviewed Allergies: Coded Allergies: Vitamin K (Verified Adverse Reaction, Intermediate, UPSET STOMACH, 08/31/16 ) Objective . Vital Signs Date Time Temp Pulse Resp B/P Pulse Ox O2 Delivery O2 Flow Rate FiO2 09/06/16 12:00 97.7 75 18 127/70 96 09/06/16 08:00 98.3 72 17 125/60 96 09/06/16 04:00 97.1 75 18 150/70 96 09/06/16 00:00 97.0 73 18 130/60 96 09/05/16 20:00 98.3 73 18 127/61 95 09/05/16 17:30 95 09/05/16 16:00 96.7 71 18 125/60 97 09/05/16 09/05/16 09/06/16 15:00 23:00 07:00 Intake Total 360 ml 220 ml 350 ml Output Total 250 ml Balance 110 ml 220 ml 350 ml Intake Oral 360 ml 120 ml 240 ml IV Total 100 ml 110 ml Output Urine Total 250 ml # Voids 3 2 2 # Bowel Movements 2 1 0 . Laboratory Tests Test 09/05/16 13:34 White Blood Count 10.2 TH/MM3 Red Blood Count 4.17 MIL/MM3 Hemoglobin 12.6 GM/DL Hematocrit 36.6 % Mean Corpuscular Volume 87.7 FL Mean Corpuscular Hemoglobin 30.1 PG Mean Corpuscular Hemoglobin 34.3 % Concent Red Cell Distribution Width 13.7 % Platelet Count 287 TH/MM3 Mean Platelet Volume 7.3 FL Neutrophils (%) (Auto) 83.7 % Lymphocytes (%) (Auto) 9.1 % Monocytes (%) (Auto) 6.8 % Eosinophils (%) (Auto) 0.2 % Basophils (%) (Auto) 0.2 % Neutrophils # (Auto) 8.5 TH/MM3 Lymphocytes # (Auto) 0.9 TH/MM3 Monocytes # (Auto) 0.7 TH/MM3 Eosinophils # (Auto) 0.0 TH/MM3 Basophils # (Auto) 0.0 TH/MM3 CBC Comment DIFF FINAL Differential Comment Laboratory Tests Test 09/05/16 13:34 Sodium Level 137 MEQ/L Potassium Level 3.8 MEQ/L Chloride Level 100 MEQ/L Carbon Dioxide Level 27.7 MEQ/L Anion Gap 9 MEQ/L Blood Urea Nitrogen 11 MG/DL Creatinine 0.84 MG/DL Estimat Glomerular Filtration 66 ML/MIN Rate Random Glucose 114 MG/DL Calcium Level 9.0 MG/DL Phosphorus Level 3.1 MG/DL Magnesium Level 1.9 MG/DL Total Bilirubin 0.4 MG/DL Direct Bilirubin 0.1 MG/DL Indirect Bilirubin 0.3 MG/DL Aspartate Amino Transf 94 U/L (AST/SGOT) Alanine Aminotransferase 89 U/L (ALT/SGPT) Alkaline Phosphatase 146 U/L Total Protein 6.7 GM/DL Albumin 3.0 GM/DL Imaging Last Impressions Abdomen/Pelvis CT 08/31/1628 Signed Impressions: Service Date/Time: Wednesday, August 31, 2016 06:40 - CONCLUSION: 1. Florid diverticulosis with chronic diverticular disease but I don't see high grade acute inflammatory changes. This study without intravenous or oral contrast suggests extraluminal fluid and air collections within the pelvic cavity as above. Recommend repeating CT of the abdomen and pelvis with intravenous and oral contrast for further evaluation. 2. There is a elongated stone of the left ureteropelvic junction causing mild obstructive uropathy. 3. Prominent extrarenal pelvis on the right without evidence of acute right-sided obstructive uropathy. Haider England MD Chest X-Ray 08/31/16 [id number] Signed Impressions: Service Date/Time: Wednesday, August 31, 2016 05:32 - CONCLUSION: Chronic interstitial lung disease and mild cardiomegaly similar to before. No acute cardiopulmonary disease demonstrated. Haider England MD Physical Exam GENERAL: This is a well-nourished, well-developed patient, in no apparent distress. SKIN: No rashes. Multiple areas of ecchymoses. HEAD: Atraumatic. Normocephalic. No temporal or scalp tenderness. EYES: Pupils equal round and reactive. Extraocular motions intact. No scleral icterus. No injection or drainage. ENT: Nose without bleeding, purulent drainage or septal hematoma. Throat without erythema, tonsillar hypertrophy or exudate. Uvula midline. Airway patent. NECK: Trachea midline. Supple, nontender, no meningeal signs. CARDIOVASCULAR: HS audible. RESPIRATORY: Clear to auscultation. Breath sounds equal bilaterally. No wheezes , rales, or rhonchi. GASTROINTESTINAL: Abdomen soft, non-tender, nondistended. MUSCULOSKELETAL: Changes s/o arthritis of joints. NEUROLOGICAL: Awake and alert. Grossly non focal Psych: cooperative IV line sites with no e/o infection. Assessment & Plan Remarks Possible Sepsis in an Immune compromised patient (she may not mount typical signs/symptoms like WBC and temps but history of temps 102 F prior to arrival) Source of infection: Diverticular abscess Rheumatoid arthritis on multiple Immune suppressing agents. Immune compromised host. On prednisone at risk for perforation as well as adrenal insufficiency as she has been on [facility] steroids. Recs: DC Zosyn IV Augmentin 875 mg po bid for 14 days with 1 refill. Patient to follow up with surgery and (ID MD known to patient) and have a repeat CT A/P. Depending on the repeat imaging further antibiotic course to be decided. Counseled about Cdiff. d/w Surgery plan for repeat CT A/P as outpatient. d/w patient and spouse: she will need follow up with Gen Surgery and Dr.Ejie Sylvia elizabeth ID MD. Will likely need 2-4 weeks of IV depending on repeat imaging. d.w hospitalist team. Will sign off please call back if any change in clinical condition or questions. Emmie Lindsay MD Sep 06, 2016 14:40
[2016-09-06] MEDS ORDERED: AMOXICILLIN/CLAVULANATE K 875 MG TAB PO SCH (14:45)
--- NOTE | 2016-09-06 17:26 | HHI.DS ---
cc: Dr. Anil Cevallos; Sylvia Watts MD; Wil Wang MD Discharge Summary Admission Date Aug 31, 2016 at 11:40 Discharge Date: Sep 06, 2016 Admitting Diagnosis Hypothyroidism, Altered mental status. (1) Colonic diverticular abscess ICD Code: K57.20 Diagnosis: Principal (2) Sepsis ICD Code: A41.9 Diagnosis: Principal (3) Psychosis ICD Code: F29 Diagnosis: Secondary (4) Hallucination, visual ICD Code: R44.1 Diagnosis: Secondary (5) COPD (chronic obstructive pulmonary disease) ICD Code: J44.9 Diagnosis: Secondary (6) Hypothyroidism ICD Code: E03.9 Diagnosis: Secondary (7) Lung nodules ICD Code: R91.8 Diagnosis: Secondary Procedures None Brief History - From Admission 80-year-old female with a past medical history of RA, hypothyroidism, COPD, lung mass, diverticulitis who presented with chills, vomiting, and diarrhea. The patient states that last night she began shaking uncontrollably. She began having nausea and vomiting, cannot quantify episodes. Also had an episode probably one episode of diarrhea, nonbloody. She was having generalized weakness and was unable to get up, so her spouse called the paramedics. They state they checked her temperature and at one point it was over 102. She denies any abdominal pain. She was admitted last year and had an episode of diverticulitis during admission. She was prescribed Cipro and Flagyl at the time, but only took about 5 days' worth, because she felt like the antibiotics made her feel worse and was afraid the Cipro would cause C. difficile. She denies any chest pain, shortness breath, cough. She states that she had a colonoscopy done about a year ago with her tourism radio presenter, Dr. Vazquez, and was told she would need another colonoscopy for 10 years. CBC/BMP: 09/05/16 1334 09/05/16 1334 Significant Findings Laboratory Tests Test 09/04/16 09/05/16 09/05/16 04:26 11:32 13:34 Red Blood Count 3.59 MIL/MM3 (4.00-5.30) Hemoglobin 10.7 GM/DL (11.6-15.3) Hematocrit 31.3 % (35.0-46.0) Urine Leukocyte Esterase TRACE (NEG) Urine Mucus FEW /lpf (OCC) Neutrophils (%) (Auto) 83.7 % (16.0-70.0) Neutrophils # (Auto) 8.5 TH/MM3 (1.8-7.7) Lymphocytes # (Auto) 0.9 TH/MM3 (1.0-4.8) Estimat Glomerular Filtration 66 ML/MIN (>89) Rate Random Glucose 114 MG/DL (74-106) Aspartate Amino Transf 94 U/L (15-37) (AST/SGOT) Alanine Aminotransferase 89 U/L (10-53) (ALT/SGPT) Alkaline Phosphatase 146 U/L (45-117) Albumin 3.0 GM/DL (3.4-5.0) Imaging Last Impressions Abdomen/Pelvis CT 09/04/16 0000 Signed Impressions: Service Date/Time: Sunday, September 04, 2016 18:26 - CONCLUSION: 1. Stable to slight decrease in size of small complex fluid collection superior to sigmoid colon, possibly a decompressed diverticular abscess. No drainable fluid collections. Severe sigmoid diverticulosis persists. Judah Little MD Chest X-Ray 08/31/16 [id number] Signed Impressions: Service Date/Time: Wednesday, August 31, 2016 05:32 - CONCLUSION: Chronic interstitial lung disease and mild cardiomegaly similar to before. No acute cardiopulmonary disease demonstrated. Haider England MD PE at Discharge GENERAL: Well-developed well-nourished. In no acute distress. SKIN: Warm and dry. No lesions noted. HEENT: Normocephalic. Pupils equal and round. Mucous membranes pink and moist. CARDIOVASCULAR: Regular rate and rhythm. No murmur appreciated. RESPIRATORY: No accessory muscle use. Clear to auscultation. Breath sounds equal bilaterally. GASTROINTESTINAL: Abdomen soft, non-tender, nondistended. Bowel sounds x4. MUSCULOSKELETAL: No obvious deformities. No clubbing or cyanosis. No edema. NEUROLOGICAL: Awake and alert. No focal neurological deficits. Moves upper and lower extremities spontaneously. Normal speech. PSYCHIATRIC: Appropriate mood and affect; insight and judgment normal. Pt update on day of discharge The patient is seen ambulating her room. She denies any abdominal pain, nausea/ vomiting. She had 1 episode of diarrhea yesterday. Denies fevers/chills. Hallucinations resolved after stopping antibiotics. She wants to go home. Seen with family at bedside. Discussed with Dr. Lindsay. Hospital Course 80-year-old female with a past medical history of RA, hypothyroidism, COPD, lung mass, diverticulitis who presented with chills, vomiting, and diarrhea and was found to have diverticular abscess Diverticular abscess: Upon arrival, CT abd/pelvis showed 2.7 x 2.3 cm soft tissue collection directly superior to the sigmoid colon, with suspected decompressed diverticular abscess. Tmax 101.6 on 08/31. No leukocytosis. Lactic acid wnl. Blood cultures with NGTD x5days. General surgery consulted, recommended conservative management with abx. Consulted gastroenterology, signed off. ID consulted, Dr. Lindsay started on antibiotics including Cipro, Flagyl, Diflucan, with transition to oral however the patient developed visual hallucinations while on these medications therefore ID was contacted, Dr. Alejandra recommended stop abx and place on IV zosyn. Diet advanced to regular since 09/03, patient tolerating well. Given IVF, Lactinex. Repeat abdominal CT ordered by surgery 09/04 which showed stable to slight decrease in size of small complex fluid collection superior to sigmoid colon, possibly decompressed diverticular abscess; No drainable fluid collections; Severe sigmoid diverticulosis persists. Patient requesting to be discharged, seen by Dr. Lindsay who recommended Augmentin/Diflucan [id number] and cleared for discharge. Dr. Lindsay referred the patient to f/up with infectious disease Dr. Watts in 10 days, patient may need repeat CT scan in 2 weeks if indicated. Possible Sepsis: in immunocompromised patient on multiple immune suppressing agents, she likely will not show typical signs/symptoms such as elevated WBCs however with temps 102F prior to arrival. Continue abx as above. Blood cultures with NGTD. On IVF. Sepsis resolved. Discharged on po antibiotics as above. COPD: History of interstitial lung disease and pulmonary nodules. Follows with Dr. Bruce as outpatient who is monitoring the lung findings. Not on O2 at home. O2 and nebs as needed. Hypothyroidism: Chronic, stable. Continue levothyroxine. Rheumatoid arthritis: Continue methylprednisolone, hydroxychloroquine, Abatacept. Generalized weakness: Secondary to the above. PT/OT consult. Visual hallucinations: The patient was experiencing some visual hallucinations that included seeing people and seeing clouds. This could be secondary to antibiotic therapy or due to acute psychosis, the patient has some dementia. As above this case was discussed with ID who recommended discontinuation of oral ciprofloxacin oral Flagyl and to start IV Zosyn, then changed to Augmentin at discharge. DVT prophylaxis: Aristides Cruz spent 35 minutes [id number] with the patient or on the mera discussing the patient's disposition, prognosis, and plan of care with her caregivers. Over half the time spent was devoted to counseling the patient regarding placement in coordinating care with caregivers and case management. Pt Condition on Discharge: Stable Discharge Disposition: Disch w/ Home Health Serv Discharge Time: > 30 minutes Discharge Instructions DIET: Follow Instructions for: As Tolerated, No Restrictions Activities you can perform: Regular-No Restrictions Follow up Referrals: Infectious Disease - 10 Days with Sylvia Watts MD PCP Follow-up - 3-5 Days with Anil Cevallos MD Surgical - 3 Weeks with Wil Wang MD New Medications: Amoxicillin-Clavulanate (Augmentin) 875-125 mg Tab 875 MG PO BID not for use in CrCl <30 ml/min. Diverticular abscess #14 Ref 1 TAB Fluconazole (Diflucan) 100 Mg Tab 100 MG PO DAILY Infection #14 TAB Lactobacillus Acidophilus (Acidophilus/l-Sporogenes) 1 Tab Tab 1 TAB PO Q12HR Bowel Management #28 TAB Continued Medications: Abatacept Inj (Orencia Clickjet Inj) 125 Mg/Ml Pen 125 MG SQ Q7D Rheumatoid arthritis Ref 0 PEN Ferrous Sulfate (Iron) 50 Mg Tab 65 MG PO DAILY Nutritional Supplement Ref 0 TAB Hydroxychloroquine (Hydroxychloroquine) 200 Mg Tab 200 MG PO BID Takw with food #60 Ref 0 TAB Levothyroxine (Levothyroxine) 100 Mcg Tab 100 MCG PO DAILY Thyroid #30 Ref 0 TAB Methylprednisolone (Methylprednisolone) 4 Mg Tab 4 MG PO DAILY Ref 0 TAB Multiple Vitamins W/ Minerals (Multivitamin Adults) 1 Tab 1 TAB PO DAILY Nutritional Supplement Ref 0 TAB Zoledronic Acid Inj (Reclast Inj) 5 Mg/100 Ml Inj 5 MG IV Q365D #1 Ref 0 BAG Additional Information Written by Hannah Garcia, acting as scribe for Dr. Crook on 09/06/16 at 17:24. The documentation accurately reflects the work performed [id number] by me Dr. Crook on 09/06/16 at 17:24. Hannah Garcia PA-C Sep 06, 2016 17:26 Melany Crook MD Sep 06, 2016 19:51
== END 2016-09-06 15:54 | disposition home health service (06) | DRG 872 ==
LOC: NEPE 04:51 → NEDA 10:30 → OBSVTOIN 11:40 → NEPFCDU 19:02 → N07B 09-04 20:29
PROVIDERS: ADMIT Hospitalist; ATTEND Hospitalist
DX: A41.9 Sepsis, unspecified organism (principal); J84.9 Interstitial pulmonary disease, unspecified; J44.9 Chronic obstructive pulmonary disease, unspecified; N13.9 Obstructive and reflux uropathy, unspecified; K57.20 Diverticulitis of large intestine with perforation and abscess without bleeding; F03.90 Unspecified dementia, unspecified severity, without behavioral disturbance, psychotic disturbance, mood disturbance, and anxiety; M06.9 Rheumatoid arthritis, unspecified; E03.9 Hypothyroidism, unspecified; F29 Unspecified psychosis not due to a substance or known physiological condition; I51.7 Cardiomegaly; R31.29 Other microscopic hematuria; Z87.442 Personal history of urinary calculi
CPT/HCPCS: 71010; 74176; 74177; 76937; 80048; 80053; 80076; 81001; 82550; 82552; 83605; 83690; 83735; 83880; 84100; 84443; 84484; 85025; 85027; 85610; 85730; 86140; 87040; 93005; 96361; 96365; 96367; 96375; G8987-GP; G8988-GP; J0696; J0744; J1450; J1650; J2405; J2543; J7030; J7040; J7509; P9612; Q9963; Q9967

== ENCOUNTER 2016-12-10 00:50 | Emergency (ER) | payer MEDICARE, BC ==
[~2016-12-10] VITALS: Ht 152.4 cm; Wt 56.7 kg
[~2016-12-10 00:50] MED LIST changes: +ABAT1INJ2 SQ; +AUGM875T PO; -B-12500T3 PO; -BONI3INJ IM; -CALC500 PO; -CIPR500T4 PO; +DIFL100T PO; +FERR1TAB58 PO; -FOLI200T OR; +HYDR200T3 PO; -IRON28TA2 PO; +LEVO100T5 PO; -LEVO125T3 PO; -METH-60 IM; -METR500I3 PO; -MULT-65 PO; +MULT1TAB84 PO; -VITA400C58 PO; +ZOLE5P IV
[2016-12-10 00:58] VITALS: BP 138/68; PULSE 106; RESP 22; TEMP 98.2; O2SAT 95
[2016-12-10 01:28] VITALS: BP 132/49; PULSE 96; RESP 18; O2SAT 95
[2016-12-10 02:35] VITALS: BP 113/52; PULSE 89; O2SAT 96
[2016-12-10] MEDS ORDERED: SODIUM CHLORIDE 0.9% FLUSH 10 ML FLUSH IVF PRN (03:00)
--- NOTE | 2016-12-10 03:02 | PD ---
HPI Chief Complaint: Respiratory Symptoms Time Seen by Provider: 02:45 Travel History International Travel<30 days: No Contact w/Intl Traveler<30days: No Traveled to known affect area: No History of Present Illness HPI The patient is a 81-year-old female that complains of shortness of breath since this p.m. She does have a history of COPD. She does have a mild cough. She does not think that she has had a fever at home but has had some chills. She does not have a history of congestive heart failure. She denies any wheezing. She does not have a nebulizer machine at home. She has a sharp, pleuritic chest pain located in the midsternal area. The patient states he is only slightly short of breath and breathing treatments make her shake and does not want a breathing treatment at this time. PFSH Past Medical History Anemia: Yes Arthritis: Yes Asthma: No Autoimmune Disease: No Heart Rhythm Problems: No Cancer: Yes Cardiovascular Problems: No High Cholesterol: No Chemotherapy: No Chest Pain: No Congestive Heart Failure: No COPD: Yes Cerebrovascular Accident: No Diabetes: No Diminished Hearing: No Diverticulitis: Yes (AND DIVERTICULOSIS) Endocrine: Yes GERD: Yes Genitourinary: No Hiatal Hernia: No Immune Disorder: No Kidney Stones: Yes Medical other: Yes (FALL:NOVEMBER 20, 2016: RIGHT LEG WOUND) Musculoskeletal: Yes Neurologic: No Psychiatric: No Reproductive: No Respiratory: Yes Migraines: No Radiation Therapy: No Renal Failure: No Seizures: No Shingles: Yes Sickle Cell Disease: No Sleep Apnea: No Thyroid Disease: Yes (HYPOTHYROIDISM) Ulcer: No Influenza Vaccination: Yes ?: Not Menopausal: Yes : 5 Para: 4 Miscarriage: 1 Past Surgical History Abdominal Surgery: No AICD: No Appendectomy: Yes Arteriovenous Shunt: No Cardiac Surgery: No Ear Surgery: No Endocrine Surgery: No Eye Surgery: Yes (BILATERAL CATARACTS, MACULAR DEGENERATION LEFT EYE) Genitourinary Surgery: No Gynecologic Surgery: No Joint Replacement: No Oral Surgery: No Pacemaker: No Thoracic Surgery: Yes Tonsillectomy: Yes Other Surgery: Yes (LEFT BREAST LUMPECTOMY) Social History Alcohol Use: No Tobacco Use: No (QUIT AGE 51) Substance Use: No Allergies-Medications (Allergen,Severity, Reaction): Coded Allergies: Vitamin K (Verified Adverse Reaction, Intermediate, UPSET STOMACH, 12/10/16 ) Reported Meds & Prescriptions Reported Meds & Active Scripts Active Bactrim DS (Sulfamethoxazole-Trimethoprim) 800-160 Mg Tab 1 Tab PO BID Reported Reclast Inj (Zoledronic Acid) 5 Mg/100 Ml Inj 5 Mg IV Q365D Hydroxychloroquine (Hydroxychloroquine Sulfate) 200 Mg Tab 200 Mg PO DAILY Takw with food Methylprednisolone 4 Mg Tab 4 Mg PO DAILY Levothyroxine (Levothyroxine Sodium) 100 Mcg Tab 100 Mcg PO DAILY Iron (Ferrous Sulfate) 50 Mg Tab 65 Mg PO HS Multivitamin Adults (Multiple Vitamins W/ Minerals) 1 Tab 1 Tab PO DAILY Review of Systems Except as stated in HPI: all other systems reviewed are Neg Physical Exam Narrative GENERAL: The patient is alert, oriented 3 and minimal respiratory distress. Her initial heart rate was 106 but repeat was 96. Respirations initially were 22 but repeat is 18 blood pressure initially was 138/68 but repeat is 132/49. Oximetry is 95%. SKIN: Focused skin assessment warm/dry. There is a thin skin laceration that is on her right leg HEAD: Atraumatic. Normocephalic. EYES: Pupils equal and round. No scleral icterus. No injection or drainage. ENT: No nasal bleeding or discharge. Mucous membranes pink and moist. NECK: Trachea midline. No JVD. CARDIOVASCULAR: Regular rate and rhythm. No murmur appreciated. RESPIRATORY: No accessory muscle use. Clear to auscultation. Breath sounds equal bilaterally. GASTROINTESTINAL: Abdomen soft, non-tender, nondistended. Hepatic and splenic margins not palpable. MUSCULOSKELETAL: No obvious deformities. No clubbing. No cyanosis. No edema. NEUROLOGICAL: Awake and alert. No obvious cranial nerve deficits. Motor grossly within normal limits. Normal speech. PSYCHIATRIC: Appropriate mood and affect; insight and judgment normal. Data Data Last Documented VS Vital Signs Date Time Temp Pulse Resp B/P Pulse Ox O2 Delivery O2 Flow Rate FiO2 12/10/16 04:57 89 97 Room Air 12/10/16 04:55 98.6 18 116/57 Orders Complete Blood Count With Diff (12/10/16 02:57) Comprehensive Metabolic Panel (12/10/16 02:57) Influenzae A/B Antigen (12/10/16 02:57) Urinalysis - C+S If Indicated (12/10/16 02:57) Chest, Pa & Lat (12/10/16 02:57) Sodium Chloride 0.9% Flush (Ns Flush) (12/10/16 03:00) Urine Culture (12/10/16 03:35) Sulfamet-Trimeth Ds 800-160 Mg (Bactrim (12/10/16 05:45) Labs Laboratory Tests Test 12/10/16 12/10/16 01:50 03:35 White Blood Count 15.1 TH/MM3 Red Blood Count 4.15 MIL/MM3 Hemoglobin 11.9 GM/DL Hematocrit 36.1 % Mean Corpuscular Volume 86.9 FL Mean Corpuscular Hemoglobin 28.8 PG Mean Corpuscular Hemoglobin 33.1 % Concent Red Cell Distribution Width 12.8 % Platelet Count 448 TH/MM3 Mean Platelet Volume 7.9 FL Neutrophils (%) (Auto) 84.4 % Lymphocytes (%) (Auto) 7.6 % Monocytes (%) (Auto) 6.9 % Eosinophils (%) (Auto) 0.9 % Basophils (%) (Auto) 0.2 % Neutrophils # (Auto) 12.9 TH/MM3 Lymphocytes # (Auto) 1.1 TH/MM3 Monocytes # (Auto) 1.0 TH/MM3 Eosinophils # (Auto) 0.1 TH/MM3 Basophils # (Auto) 0.0 TH/MM3 CBC Comment DIFF FINAL Differential Comment Sodium Level 137 MEQ/L Potassium Level 3.3 MEQ/L Chloride Level 102 MEQ/L Carbon Dioxide Level 26.3 MEQ/L Anion Gap 9 MEQ/L Blood Urea Nitrogen 18 MG/DL Creatinine 0.69 MG/DL Estimat Glomerular Filtration 82 ML/MIN Rate Random Glucose 119 MG/DL Calcium Level 9.2 MG/DL Total Bilirubin 0.4 MG/DL Aspartate Amino Transf 30 U/L (AST/SGOT) Alanine Aminotransferase 26 U/L (ALT/SGPT) Alkaline Phosphatase 82 U/L Total Protein 7.0 GM/DL Albumin 2.8 GM/DL Urine Collection Type Urine Color YELLOW Urine Turbidity CLEAR Urine pH 6.0 Urine Specific Graham 1.015 Urine Protein TRACE mg/dL Urine Glucose (UA) NEG mg/dL Urine Ketones NEG mg/dL Urine Occult Blood NEG Urine Nitrite NEG Urine Bilirubin NEG Urine Leukocyte Esterase TRACE Urine RBC 0-2 /hpf Urine WBC 9-14 /hpf Urine Squamous Epithelial 6-8 /hpf Cells Urine Bacteria RARE /hpf Microscopic Urinalysis Comment CULTURE INDICATED Urine Collection Time MDM Medical Decision Making Medical Screen Exam Complete: Yes Emergency Medical Condition: Yes Medical Record Reviewed: Yes Interpretation(s) The urine shows trace leukocyte esterase, 9-14 white cells and rare bacteria and culture is indicated. The complete metabolic profile shows a GFR of 82, glucose 119 and potassium 3.3. The rest is normal on the complete metabolic profile. The CBC is 15,100 with 84% neutrophils but is otherwise unremarkable. The chest x-ray shows chronic bilateral interstitial lung disease suggestive of pulmonary fibrosis this is stable and unchanged compared to the prior x-ray on July 2015. No new pulmonary infiltrates are demonstrated. The heart is stable and there are no pleural effusions. Differential Diagnosis Congestive heart failure, pneumonia, bronchitis, COPD with acute exacerbation, UTI Narrative Course The patient appears to have COPD with mild exacerbation. She also has a urinary tract infection. She also has a 3 week old healing laceration which is thin skin on her right lower leg and is associated with some slight inflammation around it. Plan: The patient be put on Septra DS which should help the UTI as well as the thin skin laceration. Diagnosis Primary Impression: UTI (urinary tract infection) Additional Impressions: COPD with acute exacerbation Laceration of right lower leg Additional Instructions: The antibiotic is one tablet twice daily. If you get worse, please return to emergency department. Otherwise follow-up with your primary care physician. Med/Other Pt SpecificInfo: Prescription(s) given Scripts Sulfamethoxazole-Trimethoprim (Bactrim DS)800-160 Mg Tab1 Tab PO BID #20 TAB Ref 0 Prov:Jian Edouard MD 12/10/16 Disposition: 01 DISCHARGE HOME Condition: Stable Jian Edouard MD December 10, 2016 03:02
[2016-12-10 03:23] LABS: AUTOMATED NEUTROPHIL # 12.9 TH/MM3 (1.8-7.7); BASOPHIL % 0.2 % (0.0-2.0); EOSINOPHIL # 0.1 TH/MM3 (0-0.4); EOSINOPHIL % 0.9 % (0.0-4.0); HEMATOCRIT 36.1 % (35.0-46.0); HEMO FLAGS DIFF FINAL; LYMPH % 7.6 % (9.0-44.0); LYMPHOCYTE # 1.1 TH/MM3 (1.0-4.8); MEAN CELL VOLUME 86.9 FL (80.0-100.0); MEAN CORPUSCULAR HEMOGLOBIN 28.8 PG (27.0-34.0); MEAN CORPUSCULAR HGB CONC 33.1 % (32.0-36.0); MONO % 6.9 % (0.0-8.0); NEUT % 84.4 % (16.0-70.0); PLATELET COUNT 448 TH/MM3 (150-450); RED BLOOD COUNT 4.15 MIL/MM3 (4.00-5.30); RED CELL DISTRIBUTION WIDTH 12.8 % (11.6-17.2); WHITE BLOOD COUNT 15.1 TH/MM3 (4.0-11.0)
--- NOTE | 2016-12-10 03:26 | RADHPO ---
EXAM DATE/TIME: 12/10/2016 03:09 [facility] COMPARISON: CHEST PA & LAT, July 31, 2015, 2:16. INDICATIONS : Chest pain, difficulty breathing for 24 hours MEDICAL HISTORY : None. SURGICAL HISTORY : None. ENCOUNTER: Initial ACUITY: 1 day PAIN SCORE: 6/10 LOCATION: Bilateral chest FINDINGS: There is chronic bilateral interstitial lung disease suggestive of pulmonary fibrosis. This is stable and unchanged compared to the prior chest x-ray from 07/31/2015. No definite new pulmonary infiltrat es are demonstrated. The heart size is stable. There are no pleural effusions. The bony structures ar e stable. CONCLUSION: Stable bilateral chronic interstitial lung disease. Cali Jackson MD on December 10, 2016 at 3:24 Board Certified Radiologist. This report was verified electronically.
[2016-12-10 03:31] VITALS: TEMP 100.7
[2016-12-10 03:31] LABS: CHLORIDE 102 MEQ/L (98-107); POTASSIUM 3.3 MEQ/L (3.5-5.1); SODIUM (NA) 137 MEQ/L (136-145)
[2016-12-10 03:35] LABS: ANION GAP 9 MEQ/L (5-15); BICARBONATE 26.3 MEQ/L (21.0-32.0); BLOOD UREA NITROGEN 18 MG/DL (7-18)
[2016-12-10 03:38] LABS: ALT (GPT) 26 U/L (10-53); AST (GOT) 30 U/L (15-37); GLOMERULAR FILTRATION RATE 82 ML/MIN (>89)
[2016-12-10 03:39] LABS: TOTAL BILIRUBIN ADULT 0.4 MG/DL (0.2-1.0)
[2016-12-10 03:41] LABS: ALKALINE PHOSPHATASE 82 U/L (45-117)
[2016-12-10 03:45] LABS: BLOOD, URINE NEG (NEG); GLUCOSE,URINE NEG (NEG); KETONE, URINE NEG (NEG); NITRITE,URINE NEG (NEG)
[2016-12-10 03:53] LABS: URINE COLOR YELLOW (YELLW/STRAW)
[2016-12-10 03:54] LABS: BACTERIA, URINE RARE /hpf; COMMENT (UR) CULTURE INDICATED; CULTURE IF INDICATED CULTURE INDICATED; RBC, URINE 0-2 /hpf (0-3)
[2016-12-10 04:55] VITALS: BP 116/57; PULSE 89; RESP 18; TEMP 98.6; O2SAT 97
[2016-12-10] MEDS ORDERED: BACT800T5 PO (05:39)
[2016-12-10] MEDS ORDERED: SULFAMETHOXAZOLE-TRIMETHOPRIM DS 800-160 MG TAB PO ONE (05:45)
== END 2016-12-10 06:32 | disposition home or self-care (01) ==
LOC: PHED 00:50
DX: N39.0 Urinary tract infection, site not specified (principal); J44.1 Chronic obstructive pulmonary disease with (acute) exacerbation; S81.811D Laceration without foreign body, right lower leg, subsequent encounter; E03.9 Hypothyroidism, unspecified; Z87.09 Personal history of other diseases of the respiratory system; Z86.2 Personal history of diseases of the blood and blood-forming organs and certain disorders involving the immune mechanism; Z87.39 Personal history of other diseases of the musculoskeletal system and connective tissue; Z87.19 Personal history of other diseases of the digestive system; Z87.442 Personal history of urinary calculi; X58.XXXD Exposure to other specified factors, subsequent encounter
CPT/HCPCS: 71020; 80053; 81001; 85025; 87086; 87804; 99285